=== PATIENT | male | born 1955 | race Caucasian/White ===

== ENCOUNTER 2019-05-04 05:32 | Inpatient (IN) | payer MEDICARE ==
[~2019-05-04 05:32] MED LIST: Buffered Lidocaine 1% SYRIN* 1 ML/SYRINGE INTRADERM ONE
[2019-05-04] MEDS ORDERED: Famotidine TAB* 20 MG PO ONE (06:00)
[2019-05-04] MEDS ORDERED: Acetaminophen TAB* 325 MG PO ONE (06:00)
[2019-05-04] MEDS ORDERED: Gabapentin CAP(*) 300 MG PO ONE (06:00)
[2019-05-04] MEDS ORDERED: Lactated Ringers 1000 ML Bag* 1,000 ML IV SCH ×2 (06:00→23:00)
[2019-05-04] MEDS ORDERED: Dexamethasone IV* 4 MG/ML 1 ML (4 MG) IV SLOW PU ONE (06:00)
[2019-05-04] MEDS ORDERED: celeCOXIB CAP* 200 MG PO ONE (06:00)
[2019-05-04] MEDS ORDERED: Gabapentin CAP(*) 300 MG ONE (06:03)
[2019-05-04] MEDS ORDERED: Dexamethasone IV* 4 MG/ML 1 ML (4 MG) ONE (06:03)
[2019-05-04] MEDS ORDERED: Acetaminophen TAB* 325 MG ONE (06:03)
[2019-05-04] MEDS ORDERED: celeCOXIB CAP* 200 MG ONE (06:04)
[2019-05-04] MEDS ORDERED: ceFAZolin 2 GM PREMIX in ORs 2 GM/50 ML BAG ONE (06:04)
[2019-05-04] MEDS ORDERED: Famotidine IV* 10 MG/ML 2 ML (20 mg) ONE (06:04)
[2019-05-04] MEDS ORDERED: Buffered Lidocaine 1% SYRIN* 1 ML/SYRINGE INTRADERM ONE (06:04)
[2019-05-04] MEDS ORDERED: Famotidine TAB* 20 MG ONE (06:38)
[2019-05-04] MEDS ORDERED: HYDROmorphone INJ1* 1 MG/ML SYRINGE IV PRN ×2 (06:54→20:27)
[2019-05-04] MEDS ORDERED: Naloxone* 0.4 MG/ML 1 ML VIAL IV PRN (06:54)
[2019-05-04] MEDS ORDERED: Acetaminophen IV 1GM/100ML * 1,000 MG/100 ML VIAL IVPB ONE (06:54)
[2019-05-04] MEDS ORDERED: Ketorolac INJ* 30 MG/ML 1 ML VIAL IV PRN (06:54)
[2019-05-04] MEDS ORDERED: fentaNYL* 50 MCG/ML 2 ML VIAL (100 MCG VIAL) IV PRN (06:54)
[2019-05-04] MEDS ORDERED: DiMENhydriNATE IV* 50 MG/ML VIAL IV PUSH PRN (06:54)
[2019-05-04] MEDS ORDERED: Ondansetron INJ* 2 MG/ML VIAL IV PRN (06:54)
[2019-05-04] MEDS ORDERED: oxyCODONE TAB* 5 MG TAB PO PRN (06:54)
[2019-05-04] MEDS ORDERED: Lidocaine 1%* 5 ML VIAL ONE (07:07)
[2019-05-04] MEDS ORDERED: ROPIVACAINE 5 MG/ML 30 ML BTL (0.5%) ONE (07:07)
[2019-05-04] MEDS ORDERED: Midazolam* 1 MG/ML 5 ML VIAL (5 MG) ONE (07:15)
[2019-05-04] MEDS ORDERED: fentaNYL* 50 MCG/ML 2 ML VIAL (100 MCG VIAL) ONE (07:15)
[2019-05-04] MEDS ORDERED: KETAMINE HCL* 50 MG/ML 10 ML VIAL ONE (08:29)
[2019-05-04] MEDS ORDERED: Propofol* 10 MG/ML 20 ML BTL ONE ×2 (10:11→12:48)
[2019-05-04] MEDS ORDERED: Propofol* 1,000 MG/100 ML BTL ONE (10:12)
[2019-05-04] MEDS ORDERED: Lidocaine 2% PF * 5 ML VIAL ONE (10:12)
[2019-05-04] MEDS ORDERED: Bupivacaine 0.25% SDV PF* 10 ML VIAL INJ ONE (10:18)
[2019-05-04] MEDS ORDERED: ceFAZolin VIAL(*) VIAL ONE (12:49)
[2019-05-04] MEDS ORDERED: Magnesium Hydroxide LIQ* 30 ML UDC PO PRN (13:33)
[2019-05-04] MEDS ORDERED: Morphine 4 MG/ML VIAL (1 ml) 4 MG/ML VIAL IV PRN (13:33)
[2019-05-04] MEDS ORDERED: Bisacodyl SUPP* 10 MG SUPP PR PRN (13:33)
[2019-05-04] MEDS ORDERED: Acetaminophen TAB* 325 MG PO PRN (13:33)
[2019-05-04] MEDS ORDERED: diPHENhydraMINE IV* 50 MG/ML 1 ml VIAL (BENADRYL) IV PRN (13:33)
[2019-05-04] MEDS ORDERED: Polyethylene Glycol 3350* 17 GM PACKET PO PRN (13:33)
[2019-05-04] MEDS ORDERED: Cyclobenzaprine TAB* 10 MG PO PRN (13:33)
[2019-05-04] MEDS ORDERED: Rivaroxaban TAB(*) 10 MG PO SCH (14:00)
[2019-05-04] MEDS ORDERED: Nicotine Lozenge* mini 2 MG LOZNG.MINI MT PRN (14:13)
[2019-05-04] MEDS: Nicotine* 2MG (FRUIT FLAVOR) GUM PO PRN ×2 (14:31→17:15)
[2019-05-04] MEDS ORDERED: Ondansetron INJ* 2 MG/ML VIAL ONE (15:47)
[2019-05-04] MEDS: Lactated Ringers 1000 ML Bag* 1,000 ML IV SCH (17:06)
[2019-05-04] MEDS ORDERED: oxyCODONE/Acetamin 5/325 MG* TAB ONE (18:14)
[2019-05-04] MEDS: oxyCODONE/Acetamin 5/325 MG* TAB PO PRN ×2 (18:15→22:49)
[2019-05-04] MEDS: Pantoprazole TAB * 40 MG TAB PO SCH (19:05)
[2019-05-04] MEDS: oxyCODONE TAB* 5 MG TAB PO PRN (20:23)
[2019-05-04] MEDS: ceFAZolin 1 GM ADVAN(*) 1 GM in NS 0.9% 50 ML* 50 ML IVPB SCH (20:26)
[2019-05-04] MEDS ORDERED: HYDROmorphone INJ* 0.5 MG/0.5 ML SYRINGE IV PRN (20:26)
[2019-05-04] MEDS: Docusate CAP* 100 MG PO SCH ×2 (21:40→21:57)
[2019-05-04] MEDS: Magnesium Hydroxide LIQ* 30 ML UDC PO SCH (21:41)
[2019-05-04] MEDS: Ondansetron INJ* 2 MG/ML VIAL IV PRN (22:48)
[2019-05-04] MEDS: Carisoprodol TAB* 350 MG PO SCH (23:29)
[2019-05-04] MEDS: Ketorolac INJ* 30 MG/ML 1 ML VIAL IV PUSH PRN (23:29)
[2019-05-05] MEDS: fentaNYL* 50 MCG/ML 2 ML VIAL (100 MCG VIAL) IV SLOW PU PRN ×2 (00:10→04:55)
--- NOTE | 2019-05-05 00:28 | CONS ---
CC: Dr. Taiwo Tinsley"; Chidi Ortiz MD * CONSULTATION NOTE: DATE OF CONSULT: 05/04/19 TIME OF EVALUATION: 0. PRIMARY CARE PHYSICIAN: Dr. Taiwo Tinsley" REQUESTING PHYSICIAN FOR CONSULTATION: Lizzette Bundy MD REASON FOR CONSULT: Pain management. CHIEF COMPLAINT: Bilateral knee pain. HISTORY OF PRESENT ILLNESS: This is a 63-year-old male with a past medical history of arthritis and chronic low back pain from an accident who was admitted to the hospital for an elective bilateral knee replacement performed by Dr. Ortiz. Postoperatively, the patient has done well, but there have been issues with getting his pain under adequate control. He was switched over to Dilaudid IV because he cannot tolerate IV Morphine due to making his skin crawl. He only got 0.2 mg of Dilaudid when he came out of it and had near syncopal episode followed by nausea and vomiting. The patient states he is still having a lot of significant knee pain and some nausea. No chest pain, no shortness of breath, no lightheadedness. He states he takes about 6 tablets of 5/325 Percocet throughout the day and he takes 2 Soma tablets at bedtime and Meloxicam twice a day. This is for management of his chronic low back pain secondary to a back injury many years ago. Otherwise, remaining review of systems is negative. PAST MEDICAL HISTORY: 1. Chronic back pain secondary to injury. 2. History of hepatitis C. 3. Osteoarthritis. 4. History of peptic ulcer disease. 5. Depression. 6. Bilateral knee degenerative joint disease. PAST SURGICAL HISTORY: 1. Left shoulder repair in 1994. 2. Right knee surgery in 1984. 3. Hernia repair in 1994. MEDICATIONS: 1. Soma 350 mg 2 tabs in the evening at bedtime. 2. Percocet 5/325 per orders it states q.6 hours. The patient states he takes a total of 6 tabs throughout the day. 3. Omeprazole 20 mg daily. 4. Meloxicam 7.5 mg p.o. b.i.d. ALLERGIES: MORPHINE makes his skin crawl. FAMILY HISTORY: Reviewed and noncontributory. SOCIAL HISTORY: The patient lives with his and son. He is retired. He smokes smokeless tobacco. He quit smoking about 13 years ago. At that time he smoked for 10 years for a pack and a half a day. Occasional alcohol use. No illicit drug use. Code status is full code. His healthcare proxy is his . REVIEW OF SYSTEMS: A 14-point review of systems as mentioned in the HPI, otherwise negative. PHYSICAL EXAM: Vitals: Temp is 98.0, pulse rate 81, respiratory rate 18, oxygen saturation 95% on room air, and blood pressure 88/60. General: In no acute distress, resting comfortably, sitting up. HEENT: Head normocephalic. Pupils are equal and reactive, anicteric. Oropharynx; mucous membranes are moist. Neck: Supple. No lymphadenopathy. Cardiac: Regular rate and rhythm. Soft systolic murmur heard throughout. Respiratory: Diminished breath sounds. No wheezing, rhonchi, or rales. Abdomen: Soft, nontender, and nondistended. Extremities: The patient with bilateral knee immobilizers and ice packs. He has good skin cap refill on his toes in movement. Neurologic: Alert and oriented x3. No gross focal neurologic deficits. ASSESSMENT: This is a 63-year-old male who underwent bilateral knee replacement with Dr. Ortiz today. He has a history of chronic low back pain on narcotics and having issues with pain control. 1. Bilateral knee replacement. Management per surgery service. 2. Acute on chronic pain. The patient intolerant of morphine and appears to have had an adverse reaction to getting Dilaudid this evening as well. Discussed continuing his Percocet. Would try IV fentanyl. He states he has had a fentanyl patch in the past and tolerated it without any issues. Would also hold his meloxicam and start him on Toradol as needed. We will also put him back on his evening soma dose medication. He is already on a bowel regimen. CHRONIC MEDICAL PROBLEMS: 1. Peptic ulcer disease. Continue him on pantoprazole. 2. DVT prophylaxis, per surgery service. 3. FEN. The patient is on a regular diet. 4. Code status. Full code. Thank you for this consultation. We will follow along with you. PATIENT TIME: Greater than 30 minutes was spent doing the consultation, more than half the time spent in direct patient contact. [id number]/[facility] #: [id number] CLAUDIA
[2019-05-05] MEDS: Lactated Ringers 1000 ML Bag* 1,000 ML IV SCH (00:56)
[2019-05-05] MEDS: oxyCODONE TAB* 5 MG TAB PO PRN ×6 (00:56→23:30)
[2019-05-05] MEDS: oxyCODONE/Acetamin 5/325 MG* TAB PO PRN ×5 (02:58→21:20)
[2019-05-05] MEDS: ceFAZolin 1 GM ADVAN(*) 1 GM in NS 0.9% 50 ML* 50 ML IVPB SCH ×3 (05:03→20:47)
[2019-05-05 05:11] LABS: Hematocrit 34 % (42-52); Hemoglobin 11.5 g/dL (14.0-18.0); Mean Platelet Volume 7.4 fL (7.4-10.4); Platelet Count 231 10^3/uL (150-450)
[2019-05-05 05:25] LABS: BUN/Creatinine Ratio 18.3 (8-20); Calcium 8.6 mg/dL (8.6-10.3); EGFR African American 82.9 (>60); EGFR Non-African American 68.5 (>60); Potassium 3.8 mmol/L (3.5-5.0)
--- NOTE | 2019-05-05 06:50 | OP ---
DATE OF OPERATION: 05/04/19 - ROOM #347 DATE OF : 57 SURGEON: Chidi Ortiz MD ASSISTANTS: 1. MUNA Mcmullen. 2. MUNA Chavez A physician outreach assistant was required for the length of the procedure for assistance with the patient positioning, retraction, instrumentation, and closure. ANESTHESIOLOGIST: Dr. Zaki Gillette. ANESTHESIA: Spinal and epidural anesthesia. PRE-OP DIAGNOSES: 1. Bilateral knee osteoarthritis. 2. Rheumatoid arthritis. POST-OP DIAGNOSES: 1. Bilateral knee osteoarthritis. 2. Rheumatoid arthritis. OPERATIVE PROCEDURE: Bilateral total knee arthroplasty, right and left. ANTIBIOTICS: Ancef 2 g IV given just prior to skin incision and then prior to 4 hours afterwards during the case. TOURNIQUET TIME: 125 minutes at 300 mmHg, right thigh and 126 minutes at 300 mmHg, left thigh. SKIN TO SKIN TIME: 258 minutes. IV FLUIDS: 2500 crystalloid. URINE OUTPUT: 1000 cc in the Morelos catheter. ESTIMATED BLOOD LOSS: Less than 200 cc, although I note the anesthesiologist recorded 300 cc. Difficult to know exact number. SPECIMEN: Bone cuts from bilateral knees. IMPLANTS: Right knee implants or DePuy Spencer and Spencer Attune Cruciate Retaining System. Femur size 8 cemented, tibia size 6 cemented, patella medialized dome 38 mm cemented, polyethylene insert 5 mm. I used Palacos cement. Left knee implants with the same DePuy Spencer and Spencer Attune Cruciate Retaining System. Size 8 cemented femur, size 6 cemented tibia, patella medialized dome size 38 mm and polyethylene insert size 6 mm. Palacos cement used. COMPLICATIONS: None. INDICATIONS FOR PROCEDURE: The patient is a 63-year-old man, retired and disabled with rheumatoid arthritis, who has a long history of bilateral pain and osteoarthritis of bilateral knees. He had been treated by other physicians with multiple cortisone injections in bilateral knees. He had also received multiple genicular nerve blocks performed by Dr. Talavera at [facility]. The patient had not responded sufficiently over the years to nonoperative management involving joint replacement. The patient was very interested in simultaneous bilateral total knee arthroplasty versus staged procedures. I spoke to he and his at length about the rare, but real increase in complications seen with simultaneous bilateral total knee arthroplasty such as cardiac events, pulmonary emboli, or . The patient and his were comfortable of the risks and wanted to proceed forward with the simultaneous bilateral procedures. I had also spoke of course about the typical risks and potential complications of procedure with the patient and his . DESCRIPTION OF PROCEDURE: In preoperative holding, the patient signed the written consent. Operative extremities were marked in preoperative holding. The patient was taken back to the operating room and placed on operating room table. The patient underwent a spinal epidural by anesthesia. We laid the patient supine. I applied lateral post to each side of the table. Applied tourniquets to the proximal thighs bilaterally. Prepped and draped bilateral lower extremities first with a chlorhexidine scrub and then a ChloraPrep. We next prepped and draped bilateral lower extremities. We next put into place bilateral Pley knee positioner systems. We performed a formal time-out, surgical. I decided to start with the right knee. Esmarch was applied to the right lower extremity and tourniquet was elevated. I made a standard midline anterior incision in the skin. Changed knife. Dissected down to the extensor mechanism. Marked and then made a medial parapatellar arthrotomy. Continued this through the anterior horn of the medial meniscus. Fully extended knee. Debrided capsule of the anterior aspect of the medial and lateral tibial plateau. Everted the patella. Removed fat from the deeper aspect of the patellar tendon. Patellar everted nicely. Flexed the knee up to 90 degrees. Removed ACL. I removed osteophytes in the intercondylar notch. Identified the PCL origin. Drilled the femoral canal. Placed distal femoral cutting guide. Cut at 5 degrees of valgus and 9 mm. Removed instrument. I sized the distal femur to a size 8. I placed 4-in-1 cutting guide. Made all appropriate cuts. I removed guide. I removed all pieces of bone and removed some additional using rongeur. I used external tibial alignment cutting guide. The medial side was the low side and is slightly varus knee that I measured at 0 or 1 degrees in a coronal plane. I removed 4 mm from the low side, medial side. I placed retractors. I removed my bone cut. I removed it all in 1 piece. The low side was just a millimeter or two thick. I was very happy with that. I removed minimum of bone. At the high side, I measured to get out 13 mm that was lateral. I placed laminar spreaders and removed menisci with Bovie electrocautery. I placed dog bone spacers. I had symmetric extension and flexion spaces and adequate bone had been resected. I rasped the anterior chamfer cut of the femur. I placed a femoral trial and drilled through it. I next turned my attention to the tibia. I sized the tibia to 6. I placed the guide, drilled through it and then punched the tibia. I measured deep patellar depth. It was striking the deep about 28 mm. I removed patellar bone stock using free-hand technique to about a depth of 13 to 14 mm. I sized the patella and drilled through a guide. A 38 mm button fit nicely. I next trialed the knee. Trialed well. A good soft tissue balancing. Good balancing of flexion version extension spaces. I noted with my trialing that the patella was off from the groove of implant a bit. Anticipating may be performing somewhat of lateral release. Irrigation. I plugged up femoral canal with some bone. Irrigation. Mixed Palacos cement. Cemented in tibia femur, patellar implants, and placed a 6 mm trial insert. I let cement fully harden. Then, I trialed several sizes and picked 5 mm insert. Range of motion was incredible. It should be noted that at the start of the case when I had trial inserts in place, I did the Dr. Ibanez lift up chest as well as fully flexing the knee and that showed excellent flexion space, not too tight or loose. With final implants and we irrigated. I thought the patella was still tracking slightly lateral, so I performed a lateral retinacular release, this was done with Bovie electrocautery using the deep layer of capsule fully intact. This led the patella to track little bit more nicely. We closed the parapatellar arthrotomy with figure-eight stitches using Ethibond 0 and Vicryl 0 suture. Irrigation. Closure of the subcutaneous tissue with very simple stitches using Vicryl 2.0 suture. Ayleen to the skin. We placed a sterile warp around the right knee and we dropped the tourniquet. Next, we turned our attention to the contralateral left knee. Midline anterior longitudinal skin incision. Changed knives and dissected down to the extensor mechanism. Medial parapatellar arthrotomy. Extended knee to at least capsule of the anterior tibia. I removed fat, infrapatellar fat pad. Everted patella. I flexed the knee up to 90 degrees. Removed ACL. I removed osteophytes from intercondylar notch. I reamed the femur. I placed the distal femoral cutting guide. I removed 5 degrees of valgus and 9 mm. I sized the tibia to an 8. I placed 4-in-1 cutting guide. I removed bone cuts. I removed instruments. I applied external cutting guide to the tibia. I decided I was going to take slightly more out the medial side, so I cut 5 mm rather than 4 mm off of the low medial side. The bone cut after the bone was removed showed it to be excellent. Medial side was only 1 or 2 mm thick whereas lateral side was about 13 mm thick. I placed laminar spreaders. I removed menisci with Bovie electrocautery. I removed some loose bodies and osteophytes posteriorly. I rasped the anterior chamfer cut and drilled the femur. I sized the tibia to size 6. I placed the guide, drilled, and then punched the tibia. The patella on the left side was not as thick as the right side. I measured it to be about 24 mm in depth. I used free-hand technique to make it only 13 mm in depth. I sized it to a 38 mm and drilled it. There is some sclerotic bone present. Irrigation. Mixed cement. Plugging of femoral canal. I cemented into place tibia, femoral, and patellar component. I let the cement to harden with a size [address]. When the cement hardened, I chose a final insert of 6 mm. Excellent soft tissue balancing of the knee. I performed a tiny lateral retinacular release to improve patellar tracking. This is limited. Closed parapatellar arthrotomy with figure-eight stitches using Ethibond 0 and Vicryl 0 suture, figure-eight stitches and closed subcutaneous tissue with buried simple stitches using Vicryl 2.0 suture. Closure of the skin with ayleen. Both knees were dressed with Xeroform, 4x4s, ABDs, and sterile Webril. This was followed by an Tevin bandage from foot to proximal thigh. The patient was awakened from sedation and transferred to the PACU. The patient was to receive cooling units on both knees. DISPOSITION: The patient was admitted postoperatively for pain control IV and oral, physical therapy, medical management. As the patient was taking narcotics preoperatively, chronically, he may have a high pain medication requirement postoperatively. Because he had bilateral total knee arthroplasty simultaneously, it has been expected since preoperative that he will likely need rehabilitation placement for some period of time. The patient will see me in clinic in about 2- 1/2 weeks postoperatively for wound check and staple removal. [id number]/[facility] #: [id number] MTDD
[2019-05-05] MEDS ORDERED: Tranexamic Acid 1,000 MG in NS 0.9% 50 ML IV ONE (07:00)
[2019-05-05] MEDS: Magnesium Hydroxide LIQ* 30 ML UDC PO SCH ×2 (08:08→21:21)
[2019-05-05] MEDS: Ketorolac INJ* 30 MG/ML 1 ML VIAL IV PUSH PRN ×3 (08:09→21:21)
[2019-05-05] MEDS: Vitamin THERAPEUTIC TAB PO SCH (08:09)
[2019-05-05] MEDS: Docusate CAP* 100 MG PO SCH ×2 (08:09→21:20)
[2019-05-05] MEDS ORDERED: oxyCODONE TAB* 5 MG TAB PO PRN (09:54)
[2019-05-05] MEDS ORDERED: oxyCODONE/Acetamin 5/325 MG* TAB PO PRN (09:54)
[2019-05-05] MEDS ORDERED: HYDROmorphone INJ* 0.5 MG/0.5 ML SYRINGE IV SLOW PU PRN (09:54)
--- NOTE | 2019-05-05 10:42 | PN ---
Progress Note - Progress Note Date of Service: 05/05/19 SOAP: Subjective: []Patient seen and examined in chair. He is feeling well, knee pain is present but tolerable. Denies any chest pain, shortness of breath, dizziness, nausea. Objective: []General: Appears well, NAD, sitting up in chair BL LE: Dressings CDI, thighs soft, DF/PF intact, DP2+, sensation intact to light touch distally. Calves supple and nontender Assessment: []POD 1 SP BL total knee replacements Plan: []WBAT PT/OT Xarelto 10 mg po QD Encouraged continued IS use Vital Signs Temp 99 F 05/05/19 07:23 Pulse 87 05/05/19 07:23 Resp 18 05/05/19 10:25 BP 102/61 05/05/19 07:23 Pulse Ox 94 05/05/19 08:00 Intake & Output 05/04/19 05/05/19 05/05/19 18:59 06:59 18:59 Intake Total 2600 4469 600 Output Total 3150 1600 450 Balance -550 2869 150 Intake: IV Fluids 2600 1661 LR 1661 NS 50ML, Cefazolin 2G 100 lr 2500 IVPB 58 ABX - CEFAZOLIN 58 Oral 2750 600 Output: Urine 550 450 Morelos 2850 1050 Estimated Blood Loss 300 Other: # Bowel Movements 0 Laboratory Last Values Hgb 11.5 g/dL (14.0-18.0) L 05/05/19 04:50 Hct 34 % (42-52) L 05/05/19 04:50 Plt Count 231 10^3/uL (150-450) 05/05/19 04:50 MPV 7.4 fL (7.4-10.4) 05/05/19 04:50 Sodium 139 mmol/L (135-145) 05/05/19 04:50 Potassium 3.8 mmol/L (3.5-5.0) 05/05/19 04:50 Chloride 102 mmol/L (101-111) 05/05/19 04:50 Carbon Dioxide 32 mmol/L (22-32) 05/05/19 04:50 Anion Gap 5 mmol/L (2-11) 05/05/19 04:50 BUN 20 mg/dL (6-24) 05/05/19 04:50 Creatinine 1.09 mg/dL (0.67-1.17) 05/05/19 04:50 Est GFR ( Amer) 82.9 (>60) 05/05/19 04:50 Est GFR (Non-Af Amer) 68.5 (>60) 05/05/19 04:50 BUN/Creatinine Ratio 18.3 (8-20) 05/05/19 04:50 Glucose 117 mg/dL (70-100) H 05/05/19 04:50 Calcium 8.6 mg/dL (8.6-10.3) 05/05/19 04:50
[2019-05-05] MEDS: Rivaroxaban TAB(*) 10 MG PO SCH (12:00)
[2019-05-05] MEDS: Pantoprazole TAB * 40 MG TAB PO SCH (17:17)
--- NOTE | 2019-05-05 17:41 | PN ---
Subjective Date of Service: 05/05/19 Objective Active Medications: Acetaminophen (Tylenol Tab*) 650 mg PO Q8H PRN Bisacodyl (Dulcolax Supp*) 10 mg [place] DAILY PRN Carisoprodol (Soma Tab*) 350 mg PO BEDTIME RENAN Diphenhydramine HCl (Benadryl Iv*) 25 mg IV Q6H PRN Docusate Sodium (Colace Cap*) 100 mg PO BID [facility] Fentanyl Citrate (Fentanyl*) 25 mcg IV SLOW PU Q4H PRN Hydromorphone HCl (Dilaudid Inj*) 1 mg IV SLOW PU Q4H PRN Cefazolin Sodium 1 gm/ Sodium (Chloride) 50 mls @ 200 mls/hr IVPB Q8H [facility] Lactated Ringer's (Lactated Ringers 1000 Ml Bag*) 1,000 mls @ 100 mls/hr IV PER RATE [facility] Ketorolac Tromethamine (Toradol Inj*) 30 mg IV PUSH Q6H PRN Lactulose (Lactulose*) 30 ml PO Q6H PRN Magnesium Hydroxide (Milk Of Magnesia Liq*) 30 ml PO BID RENAN Magnesium Hydroxide (Milk Of Magnesia Liq*) 30 ml PO Q6H PRN Multivitamins (Theragran Tab*) 1 tab PO DAILY [facility] Nicotine Polacrilex (Nicotine Gum*) 2 mg PO Q2H PRN Nicotine Polacrilex (Nicotine Lozenge Mini) 2 mg MT Q2H PRN Ondansetron HCl (Zofran Inj*) 4 mg IV Q6H PRN Oxycodone HCl (Roxycodone Tab*) 10 mg PO Q4H PRN Oxycodone HCl (Roxycodone Tab*) 5 mg PO Q4H PRN Oxycodone/Acetaminophen (Percocet 5/325 Tab*) 2 tab PO Q4H PRN Oxycodone/Acetaminophen (Percocet 5/325 Tab*) 1 tab PO Q4H PRN Pantoprazole Sodium (Protonix Tab*) 40 mg PO QPM [facility] Polyethylene Glycol/Electrolytes (Miralax*) 17 gm PO DAILY PRN Rivaroxaban (Xarelto(*)) 10 mg PO Q24H [facility] Vital Signs: Temp Pulse Resp BP Pulse Ox 99.0 F 76 18 95/52 96 05/05/19 15:27 05/05/19 15:27 05/05/19 17:18 05/05/19 15:27 05/05/19 16:00 Oxygen Devices in Use Now: None Result Diagrams: 05/05/19 04:50 05/05/19 04:50 Assess/Plan/Problems-Billing Assessment: Mr. Brewer is a
[2019-05-05] MEDS: Carisoprodol TAB* 350 MG PO SCH (21:20)
[2019-05-06] MEDS: oxyCODONE/Acetamin 5/325 MG* TAB PO PRN ×3 (01:28→10:50)
[2019-05-06] MEDS: oxyCODONE TAB* 5 MG TAB PO PRN ×2 (03:56→08:20)
[2019-05-06] MEDS: ceFAZolin 1 GM ADVAN(*) 1 GM in NS 0.9% 50 ML* 50 ML IVPB SCH ×2 (03:57→10:51)
[2019-05-06 06:05] LABS: Hematocrit 30 % (42-52); Hemoglobin 10.2 g/dL (14.0-18.0); Mean Platelet Volume 7.3 fL (7.4-10.4); Platelet Count 208 10^3/uL (150-450)
[2019-05-06 07:50] VITALS: BP 98/47
[2019-05-06] MEDS: Vitamin THERAPEUTIC TAB PO SCH (08:23)
[2019-05-06] MEDS: Magnesium Hydroxide LIQ* 30 ML UDC PO SCH (08:23)
[2019-05-06] MEDS: Docusate CAP* 100 MG PO SCH (08:23)
[2019-05-06] MEDS: Ondansetron INJ* 2 MG/ML VIAL IV PRN (08:23)
[2019-05-06] MEDS ORDERED: Lorazepam PYXIS KEY ONE (08:38)
--- NOTE | 2019-05-06 10:32 | DS ---
Orthopedic Discharge Summary - Discharge Summary Date of Admission:05/04/19 Date of Discharge: 05/06/19 Date of Surgery: 05/04/19 Attending Orthopedic Provider: Dr. Ortiz Pre-operative Diagnosis: Degenerative arthritis bilateral knees Operative Procedure: Bilateral total knee arthroplasty Disposition of Patient: PMRU Condition of Patient: Stable History: BILL BURRELL is a 63 year old M with years of increasingly severe bilateral knee pain. Patient has failed conservative management and has elected to undergo a bilateral total knee replacement Hospital Course: BILL was admitted to [facility] on 05/04/19. Patient underwent a bilateral total knee replacement without complication followed by a brief recovery in PACU and transfer to the Short Stay Surgical Unit in stable condition. Our hospitalist service, physical therapy and occupational therapy also participated in this patients care. Post-op day 1: patient was alert and in no acute distress. Dressing was clean, dry and intact. Operative extremity dorsiflexion and plantarflexion intact, sensation intact to light touch distally, DP2+. Post-op day two: dressing was changed, incisions were clean, dry and intact. He was having some vomiting, Reglan and Zofran ordered. He also complains of some mild left calf pain today- venous doppler study in progress. PMRU states they will accept patient and will manage his nausea and will await venous doppler results. He will continue with Xarelto 10 mg QD at this point. Patient was deemed to be medically and orthopedically stable for discharge per PMRU criteria. Home Medications Medication Instructions Recorded Confirmed Type Carisoprodol TAB* [Soma TAB*] 1 tab PO BID 04/21/19 05/04/19 History Omeprazole 20 mg PO QPM 04/21/19 05/04/19 History Ascorbic Acid TAB* [Vitamin C 1,000 mg PO DAILY 05/04/19 05/04/19 History TAB*] Multivit-Min/Folic/Vit K/Lycop 1 tab PO DAILY 05/04/19 05/05/19 History [Men's Multivitamin Tablet] Acetaminophen TAB* [Tylenol TAB*] 650 mg PO Q8H PRN tab 05/06/19 Rx Bisacodyl SUPP* [Dulcolax Supp*] 10 mg HI DAILY PRN supp 05/06/19 Rx Carisoprodol TAB* [Soma TAB*] 350 mg PO BEDTIME tab 05/06/19 Rx Docusate CAP* [Colace Cap*] 100 mg PO BID cap 05/06/19 Rx Lactulose* 30 ml PO Q6H PRN udc 05/06/19 Rx Magnesium Hydroxide LIQ* [Milk of 30 ml PO BID udc 05/06/19 Rx Magnesia LIQ*] Magnesium Hydroxide LIQ* [Milk of 30 ml PO Q6H PRN udc 05/06/19 Rx Magnesia LIQ*] Nicotine GUM* 2MG FRUIT FLAVOR 2 mg PO Q2H PRN gum 05/06/19 Rx [Nicotine GUM*] Ondansetron INJ* [Zofran 2 MG/ML 4 mg IV Q6H PRN vial 05/06/19 Rx Inj*] Polyethylene Glycol 3350* 17 gm PO DAILY PRN packet 05/06/19 Rx [Miralax*] Rivaroxaban TAB(*) [Xarelto 10 mg 10 mg PO Q24H tab 05/06/19 Rx (*)] Vitamin THERAPEUTIC TAB* 1 tab PO DAILY tab 05/06/19 Rx [Theragran TAB*] oxyCODONE TAB* [Roxycodone TAB 5 5 mg PO Q4H PRN tab 05/06/19 Rx mg*] oxyCODONE TAB* [Roxycodone TAB 5 10 mg PO Q4H PRN tab 05/06/19 Rx mg*] oxyCODONE/Acetamin 5/325 MG* 1 tab PO Q4H PRN tab 05/06/19 Rx [Percocet 5/325 TAB*] oxyCODONE/Acetamin 5/325 MG* 2 tab PO Q4H PRN tab 05/06/19 Rx [Percocet 5/325 TAB*] Discharge to PMRU May shower on 05/07 WBAT BLE May need to change narcotics in vomiting continues Venous doppler LLE pending Follow up as scheduled in 10-[address] Ortiz
[2019-05-06] MEDS: Rivaroxaban TAB(*) 10 MG PO SCH (10:51)
[2019-05-06] MEDS ORDERED: Metoclopramide IV* 5 MG/ML 2 ML VIAL ONE (11:53)
[2019-05-06] MEDS ORDERED: Scopolamine 1.5 mg* PATCH ONE (11:53)
== END 2019-05-06 12:15 | DRG 462 ==
LOC: AA 05:32 → SSU 17:02 → AA 17:02 → SSU 17:20
PROVIDERS: ADMIT Orthopaedic Surgery; ATTEND Orthopaedic Surgery
PROC: 0SRD0J9 Replacement of Left Knee Joint with Synthetic Substitute, Cemented, Open Approach (ICD-10-PCS; principal; 2019-05-05)
PROC: 0SRC0J9 Replacement of Right Knee Joint with Synthetic Substitute, Cemented, Open Approach (ICD-10-PCS; 2019-05-05)
DX: M17.0 Bilateral primary osteoarthritis of knee (principal); F32.9 Major depressive disorder, single episode, unspecified; M06.9 Rheumatoid arthritis, unspecified; G89.29 Other chronic pain; M54.9 Dorsalgia, unspecified; M25.762 Osteophyte, left knee; M25.761 Osteophyte, right knee; K27.9 Peptic ulcer, site unspecified, unspecified as acute or chronic, without hemorrhage or perforation; F41.9 Anxiety disorder, unspecified; R11.2 Nausea with vomiting, unspecified; Z79.01 Long term (current) use of anticoagulants; Z88.5 Allergy status to narcotic agent; Z86.19 Personal history of other infectious and parasitic diseases; Z87.891 Personal history of nicotine dependence
CPT/HCPCS: 36415; 80048; 84132; 85014; 85018; 85049; A9270-GY; G8978-GP-CL; G8979-GP-CI; G8987-GO-CJ; G8988-GO-CH; J0690; J1100; J1170; J1885; J2250; J2405; J2704; J2765; J2795; J3010; J3490

== ENCOUNTER 2019-05-06 08:19 | Inpatient (IN) | payer MEDICARE ==
[2019-05-06] MEDS ORDERED: Bisacodyl SUPP* 10 MG SUPP PR PRN (10:28)
[2019-05-06] MEDS ORDERED: Al Hydrox/Mg Hydrox/Simet LIQ* 30 ML UDC PO PRN (10:28)
[2019-05-06] MEDS ORDERED: Acetaminophen TAB* 325 MG PO PRN (10:28)
[2019-05-06] MEDS ORDERED: Nicotine* 2MG (FRUIT FLAVOR) GUM PO PRN (10:39)
[2019-05-06] MEDS ORDERED: Nicotine Lozenge* mini 2 MG LOZNG.MINI MT PRN (10:40)
[2019-05-06] MEDS ORDERED: oxyCODONE/Acetamin 5/325 MG* TAB PO PRN (10:41)
[2019-05-06] MEDS ORDERED: oxyCODONE TAB* 5 MG TAB PO PRN (10:41)
[2019-05-06] MEDS ORDERED: Ondansetron ODT TAB* 4 MG SL PRN (10:42)
[2019-05-06] MEDS ORDERED: Metoclopramide IV* 5 MG/ML 2 ML VIAL IV PRN (11:35)
[2019-05-06] MEDS ORDERED: Rivaroxaban TAB(*) 10 MG PO SCH (12:00)
[2019-05-06] MEDS ORDERED: Ondansetron INJ* 2 MG/ML VIAL IV PRN (12:14)
[2019-05-06] MEDS ORDERED: oxyCODONE TAB* 5 MG TAB ONE (13:04)
[2019-05-06] MEDS: oxyCODONE TAB* 5 MG TAB PO PRN ×3 (13:07→21:53)
--- NOTE | 2019-05-06 14:33 | HP ---
CC: Dr. Tinsley; Dr. Ortiz; Dr. Talavera REHABILITATION ADMISSION: DATE OF ADMISSION: 05/06/19 PRIMARY CARE PROVIDER: Dr. Tinsley. ORTHOPEDIC SURGEON: Dr. Ortiz. PAIN SPECIALIST: Dr. Talavera. REASON FOR ADMISSION: Bilateral total knee replacements. HISTORY OF PRESENT ILLNESS: This is a 63-year-old man with rheumatoid arthritis affecting his hands and neck and osteoarthritis affecting his knees, who has been dealing with increasing knee pain over the past 3 years. On , he was admitted by Dr. Ortiz for elective bilateral total knee replacement. Postoperatively, he received some IV Dilaudid, which resulted in nausea, vomiting, and a near syncopal event. He was switched to IV fentanyl and IV Toradol on an as needed basis. His last dose of Toradol was last night. He has done fairly well with alternating doses of Percocet and Roxycodone except for he has been having nausea and vomiting. He feels that the vomiting is secondary to pain as last time this occurred, it was as he transferred to and from the commode to urinate. A scopolamine patch was added. He has Zofran on an as needed basis. Nursing upstairs had offered to him Reglan, but his reported that one of his sons had an adverse reaction to Reglan and they prefer that not be used. He had some swelling in his left calf noted this morning and venous Doppler revealed no DVT. Prior to admission, he was independent with mobility and ADLs and not using any assistive devices. With occupational therapy, he has required minimal assistance for lower body dressing , minimal assistance x2 for bathing and for toilet transfers. With physical therapy, he has required supervision for bed mobility. He has required a moderate amount of assistance for transfer with a rolling walker and was able to ambulate 4 feet with contact guard assistance. PAST MEDICAL HISTORY: 1. 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 2. History of hepatitis C with most recent counts undetectable. 3. Osteoarthritis affecting both knees, status post bilateral total knee replacements. See history of present illness. 4. Rheumatoid arthritis. Followed by Dr. Engle. 5. Peptic ulcer disease. 6. Depression. 7. History of left shoulder surgery for rotator cuff repair in 1994. 8. History of right knee arthroscopy. 9. Status post hernia repair in 1994. MEDICATIONS: 1. Soma 350 mg q.h.s., may repeat x1. 2. Protonix 40 mg daily, which is a substitute for omeprazole 20 mg daily. 3. Tylenol p.r.n. 4. Colace 100 mg b.i.d. 5. Milk of magnesia p.r.n. 6. Multivitamin daily. 7. Nicotine gum and lozenge 2 mg q.2 hours p.r.n. craving. 8. Zofran 0.4 mg IV or sublingual q.6 hours p.r.n. nausea and vomiting. 9. Roxycodone 5 to 10 mg q.4 hours p.r.n. pain. 10. Percocet 1 to 2 tablets q.4 hours p.r.n. pain. 11. MiraLAX p.r.n. 12. Xarelto 10 mg daily for DVT prophylaxis. 13. Scopolamine patch recently added. ALLERGIES: IV MORPHINE makes his skin crawl. FAMILY HISTORY: Father, heart disease and arthritis. Mother had a valve replaced and arthritis. Son, diabetes mellitus. SOCIAL HISTORY: He lives with his and 12-year-old son in [place]. If he cannot make decisions for himself, his will make decisions for him. She works in [employer] for [employer] and has a flexible schedule. 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 He quit smoking 13 years ago, but still does chew tobacco and has some nicotine dependence. He occasionally drinks alcohol. Their home has 1 step to enter from the front, but there are no rails. At the back door, there are 7 steps to enter with 2 rails and then a couple of landings before being on the first floor. There is a small bathroom that may not fit a walker on the first floor. It is 14 steps to the second level of the home. REVIEW OF SYSTEMS: See history of present illness and past medical history. The remainder of 13-system review was completed. He has not been eating because of the nausea and vomiting. No significant findings. PHYSICAL EXAMINATION GENERAL: Well developed, well nourished, appearing stated age. MENTAL STATUS: No acute distress. Alert and appropriate. VITAL SIGNS: Temperature 99.3, heart rate 81, respirations 18, oxygen saturation 95% on room air, blood pressure 98/47. HEENT: Normocephalic and atraumatic. Oropharynx is clear. Moist mucous membranes. LUNGS: Clear to auscultation bilaterally. HEART: Regular rate and rhythm. ABDOMEN: Active bowel sounds, soft, nontender, and nondistended. EXTREMITIES: No clubbing, cyanosis, or edema. Both of his knees are wrapped. NEUROLOGIC EXAM: Cranial nerves II through XII are intact. He does appear to have a slight droop at the bottom of his left lip. His , who is in the room , says that that is not unusual especially when he is tired or in pain. He has 5/5 strength in bilateral upper and lower extremities with limited testing of bilateral hips and knees secondary to pain. Sensation is intact in all 4 extremities. MUSCULOSKELETAL EXAM: Shows functional range of motion of all of his major joints, with once again limited testing of his hips and knees secondary to his surgery. LABORATORY DATA: Today, his hemoglobin is 10.2 and hematocrit is 30. Yesterday, hemoglobin was 11.5 and hematocrit was 34. Sodium 139, potassium 3.8 , BUN 20, creatinine 1.09. IMPRESSION: A 63-year-old man status post bilateral total knee replacements. He will be admitted to [facility] so that he can return to independent living. PLAN/RECOMMENDATIONS: 1. Bilateral total knee replacements. He has completed 6 doses of cefazolin. He needs followup with Dr. Ortiz as routine postoperative course. Pain medications as currently ordered. 2. DVT prophylaxis. I discussed with Dr. Ortiz his vomiting and there is concern he may have vomited his xarelto 20 minutes after he took it, although this was not confirmed. He will be placed on lovenox in the interim and then Dr. Ortiz prefers Eliquis 2.5mg bid when he tolerates po better. 3. Nausea and vomiting. Continue Zofran as needed and he now has a scopolamine patch. If this was not helpful, consider Phenergan and Compazine. Avoid Reglan due to the patient's preference. 4. Nicotine dependence. He will be offered gum or lozenges as needed. 5. Peptic ulcer disease. Continue with proton pump inhibitor. 6. History of rheumatoid arthritis. He is currently off of his scheduled meloxicam. Prednisone has been used in the past for flare-up as needed. 7. Impaired mobility. He will be seen by Physical Therapy for bed mobility, transfer, gait and stair training using the least restrictive assistive device. 8. Impaired self-care. He will be seen by Occupational Therapy for ADL and IADL training and equipment evaluation. 9. Advance directives. His is his healthcare proxy if he cannot make decisions for himself. He is a full code. ESTIMATED LENGTH OF STAY: 2 to 3 weeks. [id number]/CPS #: [id number] MTDD
[2019-05-06] MEDS: Scopolamine 1.5 mg* PATCH TRANSDERM SCH (15:38)
[2019-05-06] MEDS: oxyCODONE/Acetamin 5/325 MG* TAB PO PRN ×2 (15:44→20:27)
[2019-05-06] MEDS: Pantoprazole TAB * 40 MG TAB PO SCH (17:50)
[2019-05-06] MEDS: D5NS 0.9% 1000 ML BAG* 1,000 ML IV SCH (18:00)
[2019-05-06] MEDS: Carisoprodol TAB* 350 MG PO SCH (20:28)
[2019-05-06] MEDS: Docusate CAP* 100 MG PO SCH (20:28)
[2019-05-06] MEDS: Senna TAB PO PRN (20:28)
[2019-05-07] MEDS: oxyCODONE/Acetamin 5/325 MG* TAB PO PRN ×4 (00:45→20:20)
[2019-05-07] MEDS: oxyCODONE TAB* 5 MG TAB PO PRN ×5 (02:02→21:52)
[2019-05-07 05:04] LABS: ABS Eosinophils 0.1 10^3/ul (0-0.6); ABS Monocytes 0.8 10^3/ul (0-0.8); ABS Neutrophils 7.5 10^3/ul (1.5-7.7); Eosinophil % 1.3 %; Hematocrit 28 % (42-52); Hemoglobin 9.4 g/dL (14.0-18.0); Lymphocyte % 10.9 %; Mean Corpuscular HGB Conc 34 g/dL (31-36); Mean Corpuscular Hemoglobin 32 pg (27-31); Mean Corpuscular Volume 96 fL (80-94); Mean Platelet Volume 7.3 fL (7.4-10.4); Platelet Count 208 10^3/uL (150-450); Red Blood Count 2.89 10^6 /uL (4.18-5.48); Red Cell Distribution Width 12 % (10-15); White Blood Count 9.5 10^3/uL (3.5-10.8)
[2019-05-07 05:24] LABS: Albumin 3.2 g/dL (3.2-5.2); Albumin/Globulin Ratio 1.4 (1-3); BUN/Creatinine Ratio 11.9 (8-20); Calcium 8.6 mg/dL (8.6-10.3); EGFR Non-African American 92.6 (>60); Globulin 2.3 g/dL (2-4); Potassium 4.2 mmol/L (3.5-5.0); Total Bilirubin 0.5 mg/dL (0.2-1.0); Total Protein 5.5 g/dL (6.4-8.9)
[2019-05-07] MEDS: Polyethylene Glycol 3350* 17 GM PACKET PO PRN (09:06)
[2019-05-07] MEDS: Docusate CAP* 100 MG PO SCH ×2 (09:08→21:47)
[2019-05-07] MEDS: Vitamin THERAPEUTIC TAB PO SCH (09:08)
[2019-05-07] MEDS: Enoxaparin(*) 30 MG/0.3 ML SYR SUBCUT SCH (09:09)
[2019-05-07] MEDS ORDERED: Methocarbamol TAB* 500 MG PO PRN (10:12)
--- NOTE | 2019-05-07 10:21 | PN ---
Progress Note Date of Service: 05/07/19 Note: BILL BURRELL was visited. Nursing and therapy notes read and reviewed. No chest pain, shortness of breath or abdominal pain. He has not vomited since admission but still feels nauseated. He did eat some dinner last night and is trying to eat some breakfast. He has some right sided back pain, which he reports once in the past prior to admission progressed to more severe spasms including his abdomen. He has not new leg numbness, tingling or weakness. Just pain in the knees. He has not had a bowel movement but is passing flatus. Current Medications: Active Medications Generic Name Dose Route Start Last Admin Trade Name Freq PRN Reason Stop Dose Admin Acetaminophen 650 mg 05/06/19 10:28 Tylenol Tab* PO Q6H PRN FEVER > 101 Al Hydrox/Mg Hydrox/Simethicone 30 ml 05/06/19 10:28 Maalox Plus* PO Q6H PRN INDIGESTION Bisacodyl 10 mg 05/06/19 10:28 Dulcolax Supp* [place] DAILY PRN CONSTIPATION Carisoprodol 350 mg 05/06/19 21:00 05/06/19 20:28 Soma Tab* PO 350 mg BEDTIME RENAN Administration Docusate Sodium 100 mg 05/06/19 21:00 05/07/19 09:08 Colace Cap* PO 100 mg BID RENAN Administration Enoxaparin Sodium 30 mg 05/07/19 09:00 05/07/19 09:09 Lovenox(*) SUBCUT 30 mg Q24H RENAN Administration Dextrose/Sodium Chloride 1,000 mls @ 75 mls/hr 05/06/19 13:00 05/06/19 18:00 D5ns 0.9% 1000 Ml Bag* IV 75 mls/hr PER RATE RENAN Administration Magnesium Hydroxide 30 ml 05/06/19 10:28 Milk Of Magnesia Liq* PO Q6H PRN CONSTIPATION Methocarbamol 750 mg 05/07/19 10:12 Robaxin Tab* PO QID PRN muscle spasm or back pain Metoclopramide HCl 10 mg 05/06/19 11:35 Reglan Iv* IV Q6H PRN NAUSEA/VOMITING Multivitamins 1 tab 05/07/19 09:00 05/07/19 09:08 Theragran Tab* PO 1 tab DAILY RENAN Administration Nicotine Polacrilex 2 mg 05/06/19 10:39 Nicotine Gum* PO Q2H PRN CRAVING Nicotine Polacrilex 2 mg 05/06/19 10:40 Nicotine Lozenge Mini MT Q2H PRN CRAVING Ondansetron HCl 4 mg 05/06/19 10:42 Zofran Odt Tab* SL Q6H PRN NAUSEA/VOMITING Ondansetron HCl 4 mg 05/06/19 12:14 Zofran Inj* IV Q6H PRN NAUSEA Oxycodone HCl 5 mg 05/06/19 10:41 Roxycodone Tab* PO Q4H PRN breathrough pain Oxycodone HCl 10 mg 05/06/19 10:42 05/07/19 06:28 Roxycodone Tab* PO 10 mg Q4H PRN Administration severe breakthrough pain Oxycodone/Acetaminophen 2 tab 05/06/19 10:40 05/07/19 09:08 Percocet 5/325 Tab* PO 2 tab Q4H PRN Administration PAIN Oxycodone/Acetaminophen 1 tab 05/06/19 10:41 Percocet 5/325 Tab* PO Q4H PRN PAIN Pantoprazole Sodium 40 mg 05/06/19 18:00 05/06/19 17:50 Protonix Tab* PO 40 mg QPM RENAN Administration Pharmacy Profile Note 1 note 05/09/19 13:00 Scopolamine Patch Remove* PATCH OFF Q72H RENAN Polyethylene Glycol/Electrolytes 17 gm 05/06/19 10:39 05/07/19 09:06 Miralax* PO 17 gm DAILY PRN Administration CONSTIPATION Scopolamine 1 patch 05/06/19 13:00 05/06/19 15:38 Transderm-Scop 1.5 Mg Patch* TRANSDERM 1 patch Q72H RENAN Administration Senna 2 tab 05/06/19 10:28 05/06/19 20:28 Senokot Tab* PO 2 tab BEDTIME PRN Administration CONSTIPATION Vital Signs: Vital Signs Temp Pulse Resp BP Pulse Ox 98.7 F 82 18 113/64 95 05/07/19 05:11 05/07/19 05:11 05/07/19 09:08 05/07/19 05:11 05/07/19 05:11 Lab Results: Laboratory Results - last 24 hr 05/07/19 05/07/19 04:53 04:53 WBC 9.5 RBC 2.89 L Hgb 9.4 L Hct 28 L MCV 96 H MCH 32 H MCHC 34 RDW 12 Plt Count 208 MPV 7.3 L Neut % (Auto) 78.8 Lymph % (Auto) 10.9 [place] % (Auto) 8.7 Eos % (Auto) 1.3 Baso % (Auto) 0.3 Absolute Neuts (auto) 7.5 Absolute Lymphs (auto) 1.0 Absolute Monos (auto) 0.8 Absolute Eos (auto) 0.1 Absolute Basos (auto) 0.0 Absolute Nucleated RBC 0.0 Nucleated RBC % 0.0 Sodium 136 Potassium 4.2 Chloride 101 Carbon Dioxide 29 Anion Gap 6 BUN 10 Creatinine 0.84 Est GFR ( Amer) 112.0 Est GFR (Non-Af Amer) 92.6 BUN/Creatinine Ratio 11.9 Glucose 125 H Calcium 8.6 Total Bilirubin 0.50 AST 51 H ALT 59 H Alkaline Phosphatase 72 Total Protein 5.5 L Albumin 3.2 Globulin 2.3 Albumin/Globulin Ratio 1.4 Exam: GEN: no acute distress. alert and appropriate. looks better than yesterday LUNGS: clear bilaterally CV: regular rate and rhythm ABD: + bowel sounds, soft, non-tender, non-distended EXT: no pedal edema. no calf pain. knees wrapped and dressing c/d/i. NEURO: LE motor 5/5 bilaterally except pain limited testing of knees and hips. Sensation intact in legs and feet. SPINE: no central tenderness in lumbar spine. Pain localizes to spasm in right lumbar paraspinals. Assessment/Plan: 63yo man s/p bilateral total knee replacements #Bilateral TKA: f/u with Dr. Ortiz. PT/OT. Alternating percocet and oxycodone for pain control. May need a long acting med. #Chronic low back pain: soma at night. At home uses 6 percocet per day. Will add prn methocarbamol for muscle spasm prn #DVT ppx: Use sc lovenox until reliably not vomiting, then transition to Eliquis 2.5mg bid which is Dr. Ortiz's preference #Nausea/vomiting: scopalomine patch appears helpful. zofran prn. Continue maintenance IVF as urine appeared concentrated to me. Avoid reglan per patient and preference since 2 sons had adverse reactions. #Nicotine dependence (chewing tobacco): has nicotine gum and losenges prn #Acute post-op anemia: recheck CBC on Thursday. May have some dilution effect from IVF #Mild transaminitis: No abdominal pain. May be related to prior meds, antibiotics post-op, nausea/vomiting. Recheck P33 Thursday. #Peptic ulcer disease: continue protonix substitute for home omeprazole #Rheumatoid arthritis: at home uses meloxicam 7.5mg bid and prednisone prn flares. Off nsaids while on Eliquis. #Advanced directives: full code. is hcp. #Estimated LOS: IPOC on Thursday. 05/07/19 10:23
[2019-05-07] MEDS: D5NS 0.9% 1000 ML BAG* 1,000 ML IV SCH (11:09)
[2019-05-07] MEDS: Pantoprazole TAB * 40 MG TAB PO SCH (17:28)
[2019-05-07] MEDS: Senna TAB PO PRN (21:47)
[2019-05-07] MEDS: Carisoprodol TAB* 350 MG PO SCH (21:47)
[2019-05-07] MEDS: Magnesium Hydroxide LIQ* 30 ML UDC PO PRN (21:52)
[2019-05-08] MEDS: oxyCODONE/Acetamin 5/325 MG* TAB PO PRN ×5 (04:01→21:44)
[2019-05-08] MEDS: D5NS 0.9% 1000 ML BAG* 1,000 ML IV SCH (04:04)
[2019-05-08] MEDS: Magnesium Hydroxide LIQ* 30 ML UDC PO PRN (05:42)
[2019-05-08] MEDS: oxyCODONE TAB* 5 MG TAB PO PRN ×5 (06:51→23:03)
[2019-05-08] MEDS ORDERED: D5NS 0.9% 1000 ML BAG* 1,000 ML IV SCH (08:16)
[2019-05-08] MEDS: Docusate CAP* 100 MG PO SCH ×2 (08:28→21:48)
[2019-05-08] MEDS: Vitamin THERAPEUTIC TAB PO SCH (08:28)
[2019-05-08] MEDS: Polyethylene Glycol 3350* 17 GM PACKET PO PRN (08:29)
[2019-05-08] MEDS: Enoxaparin(*) 30 MG/0.3 ML SYR SUBCUT SCH (08:29)
--- NOTE | 2019-05-08 09:24 | PN ---
Progress Note Date of Service: 05/08/19 Note: BILL BURRELL was visited. Nursing and therapy notes read and reviewed. He walked about 20ft yesterday in the morning, but unable in the afternoon. He feels his nausea has resolved. No chest pain, shortness of breath or abdominal pain. He had a little more time between pain med doses last night. His back pain did not progress. His worst pain is in the right lateral thigh. He has more bruising in it than the left. No bowel movement yet. + flatus Current Medications: Active Medications Generic Name Dose Route Start Last Admin Trade Name Freq PRN Reason Stop Dose Admin Acetaminophen 650 mg 05/06/19 10:28 Tylenol Tab* PO Q6H PRN FEVER > 101 Al Hydrox/Mg Hydrox/Simethicone 30 ml 05/06/19 10:28 Maalox Plus* PO Q6H PRN INDIGESTION Apixaban 2.5 mg 05/09/19 09:00 Eliquis* PO BID RENAN Bisacodyl 10 mg 05/06/19 10:28 Dulcolax Supp* [place] DAILY PRN CONSTIPATION Carisoprodol 350 mg 05/06/19 21:00 05/07/19 21:47 Soma Tab* PO 350 mg BEDTIME RENAN Administration Docusate Sodium 100 mg 05/06/19 21:00 05/08/19 08:28 Colace Cap* PO 100 mg BID RENAN Administration Enoxaparin Sodium 30 mg 05/07/19 09:00 05/08/19 08:29 Lovenox(*) SUBCUT 05/08/19 23:59 30 mg Q24H RENAN Administration Dextrose/Sodium Chloride 1,000 mls @ 75 mls/hr 05/08/19 08:16 D5ns 0.9% 1000 Ml Bag* IV 05/08/19 18:00 PER RATE RENAN Magnesium Hydroxide 30 ml 05/06/19 10:28 05/08/19 05:42 Milk Of Magnesia Liq* PO 30 ml Q6H PRN Administration CONSTIPATION Methocarbamol 750 mg 05/07/19 10:12 Robaxin Tab* PO QID PRN muscle spasm or back pain Multivitamins 1 tab 05/07/19 09:00 05/08/19 08:28 Theragran Tab* PO 1 tab DAILY RENAN Administration Nicotine Polacrilex 2 mg 05/06/19 10:39 Nicotine Gum* PO Q2H PRN CRAVING Nicotine Polacrilex 2 mg 05/06/19 10:40 Nicotine Lozenge Mini MT Q2H PRN CRAVING Ondansetron HCl 4 mg 05/06/19 10:42 Zofran Odt Tab* SL Q6H PRN NAUSEA/VOMITING Ondansetron HCl 4 mg 05/06/19 12:14 Zofran Inj* IV Q6H PRN NAUSEA Oxycodone HCl 5 mg 05/06/19 10:41 Roxycodone Tab* PO Q4H PRN breathrough pain Oxycodone HCl 10 mg 05/06/19 10:42 05/08/19 06:51 Roxycodone Tab* PO 10 mg Q4H PRN Administration severe breakthrough pain Oxycodone/Acetaminophen 2 tab 05/06/19 10:40 05/08/19 08:26 Percocet 5/325 Tab* PO 2 tab Q4H PRN Administration PAIN Oxycodone/Acetaminophen 1 tab 05/06/19 10:41 Percocet 5/325 Tab* PO Q4H PRN PAIN Pantoprazole Sodium 40 mg 05/06/19 18:00 05/07/19 17:28 Protonix Tab* PO 40 mg QPM RENAN Administration Pharmacy Profile Note 1 note 05/09/19 13:00 Scopolamine Patch Remove* PATCH OFF Q72H RENAN Polyethylene Glycol/Electrolytes 17 gm 05/06/19 10:39 05/08/19 08:29 Miralax* PO 17 gm DAILY PRN Administration CONSTIPATION Scopolamine 1 patch 05/06/19 13:00 05/06/19 15:38 Transderm-Scop 1.5 Mg Patch* TRANSDERM 1 patch Q72H RENAN Administration Senna 2 tab 05/06/19 10:28 05/07/19 21:47 Senokot Tab* PO 2 tab BEDTIME PRN Administration CONSTIPATION Vital Signs: Vital Signs Temp Pulse Resp BP Pulse Ox 98.8 F 89 18 115/58 92 05/08/19 05:53 05/08/19 05:53 05/08/19 08:26 05/08/19 05:53 05/08/19 05:53 Exam: GEN: no acute distress. alert and appropriate. looks better than yesterday LUNGS: clear bilaterally CV: regular rate and rhythm ABD: + bowel sounds, soft, non-tender, non-distended EXT: no pedal edema. no calf pain. Scant-minimal serosanguinous discharge on dressings. [place] c/d/i. NEURO: LE motor 5/5 bilaterally except pain limited testing of knees and hips. Sensation intact in legs and feet. Assessment/Plan: 63yo man s/p bilateral total knee replacements #Bilateral TKA: f/u with Dr. Ortiz. PT/OT. Alternating percocet and oxycodone for pain control. May need a long acting med. #Chronic low back pain: soma at night. At home uses 6 percocet per day. Added prn methocarbamol for muscle spasm prn #DVT ppx: Discontinued Lovenox after this morning's dose since nausea/vomiting resolved. Tomorrow he will starte Eliquis 2.5mg bid which is Dr. Ortiz's preference #Nausea/vomiting: appears resolved on scopalomine patch. zofran prn. d/c IVF after current bag. Avoid reglan per patient and preference since 2 sons had adverse reactions. #Nicotine dependence (chewing tobacco): has nicotine gum and losenges prn but not using #Acute post-op anemia: recheck CBC on Thursday. May have some dilution effect from IVF #Mild transaminitis: No abdominal pain. May be related to prior meds, antibiotics post-op, nausea/vomiting. Recheck P33 Thursday. #Peptic ulcer disease: continue protonix substitute for home omeprazole #Rheumatoid arthritis: at home uses meloxicam 7.5mg bid and prednisone prn flares. Off nsaids while on Eliquis. #Advanced directives: full code. is hcp. #Estimated LOS: IPOC on Thursday. 05/08/19 09:22
[2019-05-08] MEDS: Pantoprazole TAB * 40 MG TAB PO SCH (17:40)
[2019-05-08] MEDS ORDERED: Apixaban* 2.5 MG TAB PO SCH (21:00)
[2019-05-08] MEDS: Carisoprodol TAB* 350 MG PO SCH (21:43)
[2019-05-09] MEDS: oxyCODONE/Acetamin 5/325 MG* TAB PO PRN ×3 (03:45→17:15)
[2019-05-09] MEDS: oxyCODONE TAB* 5 MG TAB PO PRN ×4 (05:19→19:51)
[2019-05-09 05:56] LABS: ABS Eosinophils 0.4 10^3/ul (0-0.6); ABS Lymphocytes 0.9 10^3/ul (1.0-4.8); ABS Monocytes 0.9 10^3/ul (0-0.8); ABS Neutrophils 5.1 10^3/ul (1.5-7.7); Eosinophil % 5.7 %; Hematocrit 23 % (42-52); Hemoglobin 7.9 g/dL (14.0-18.0); Lymphocyte % 12.4 %; Mean Corpuscular HGB Conc 34 g/dL (31-36); Mean Corpuscular Hemoglobin 32 pg (27-31); Mean Corpuscular Volume 94 fL (80-94); Mean Platelet Volume 6.9 fL (7.4-10.4); Platelet Count 262 10^3/uL (150-450); Red Blood Count 2.45 10^6 /uL (4.18-5.48); Red Cell Distribution Width 13 % (10-15); White Blood Count 7.3 10^3/uL (3.5-10.8)
[2019-05-09 06:14] LABS: Albumin 3.2 g/dL (3.2-5.2); Albumin/Globulin Ratio 1.3 (1-3); BUN/Creatinine Ratio 15.3 (8-20); Calcium 8.6 mg/dL (8.6-10.3); EGFR African American 133.8 (>60); EGFR Non-African American 110.6 (>60); Globulin 2.4 g/dL (2-4); Potassium 4.1 mmol/L (3.5-5.0); Total Bilirubin 0.7 mg/dL (0.2-1.0); Total Protein 5.6 g/dL (6.4-8.9)
[2019-05-09] MEDS: Vitamin THERAPEUTIC TAB PO SCH (07:41)
[2019-05-09] MEDS: Docusate CAP* 100 MG PO SCH ×3 (08:34→19:50)
[2019-05-09] MEDS: Apixaban* 2.5 MG TAB PO SCH ×2 (08:34→19:49)
[2019-05-09] MEDS: Scopolamine PATCH Remove* 1 NOTE MISC PATCH OFF SCH (12:04)
[2019-05-09] MEDS: Scopolamine 1.5 mg* PATCH TRANSDERM SCH (12:04)
[2019-05-09] MEDS: Polyethylene Glycol 3350* 17 GM PACKET PO PRN (12:14)
--- NOTE | 2019-05-09 12:28 | PMRUTEAM ---
PMRU: Team Meeting Current Status: Nursing: Current Status Skin Deviations [Bilateral Incision Knee] Skin Deviation Description [ Cryo unit in place Bilateral Knee] Physical Therapy: Current Status Bed Mobility Assistance Supervision Transfer Mobility Assistance Dependent Transfer/Bed Mobility Rolling Walker Recommended Devices Ambulation Assistance Min Assisit x 2 Ambulation Assistive Devices Rolling Walker Number of Feet Patient 20 Ambulated Stairs Assistance Not Tested Stairs Recommended Devices Two Rails Number of Stairs Flight Occupational Therapy: Current Status Upper Body Dressing Supervision Lower Body Dressing Max Asst,2 Person Assist Bathing Min Assist Shower Transfer Min Assist,2 Person Assist Eating Independent Rec Therapy: Current Status Summary of Assessment and Recreation Therapy services were introduced to pt. Clinical Impression and his separately. Pt. was open to conversation and cooperative throughout. Pt. identified with interests and involvement in some of them prior to admission. His main barrier has been his knees for the past 3 years. Pt. states he enjoys his life and was interested in continued leisure visits. Pt. was open to pet therapy as well. Treatment Goals Pt. will engage in leisure activities while on the unit. Treatment Plan Provide recreation therapy services and encourage involvement. Social Work: Current Status Discharge Plan return home with home care svs and family support Potential for Family Training pt's family are involved and supportive Discharge With home care svs and family support Goals: Physical Therapy: Initial Goals Bed Mobility Assistance Independent Transfer Mobility Assistance Independent Transfer/Bed Mobility Rolling Walker Recommended Devices Ambulation Independent Ambulation Recommended Devices Rolling Walker Ambulation Distance 200 Stairs Assistance Independent Stair Recommended Devices Two Rails Number of Stairs 12 Physical Therapy: Updated Goals Transfer/Bed Mobility Rolling Walker Recommended Devices Occupational Therapy: Initial Goals Goals to be Completed in (Days 7-10 ) Upper Body Bathing Routine Supervision/Set Up Lower Body Bathing Routine Supervision/Set Up Upper Body Dressing Routine Independent Lower Body Dressing Routine Modified Independent with Toilet Hygeine and Clothing Modified Independent with Management Routine Toilet Transfer Routine Modified Independent with Step-In Shower Transfer Supervision/Set Up Routine Functional Transfers for ADL Modified Independent with Grooming Routine Independent Feeding Routine Independent Light Housekeeping Tasks Minimal Contact Assist Social Work: Goals Discharge Plan return home with home care svs and family support Potential for Family Training pt's family are involved and supportive Discharge With home care svs and family support Care Plan: Care Plan ADL's - Improve/Maintain Start: 05/09/19 11:20 Freq: DAILY Status: Active Target: Protocol: Activity Type Activity Date Activity User E-Sign Co-Sign Detail Recorded Client Recorded Date Recorded By Document 05/09/19 11:20 [id number] 05/09/19 11:20 [id number] 05/09/19 11:20 PMRU Outcome: ADL's/ADL Transfers Outcome/Goals Met Pt showed increased tolerance toward therapeutic activity in terms of positive attitude and endurance. Pt was able to complete a STS transfer with Mika x1 and CGA x1. DVT Prophylaxis- Improve/Maintain Start: 05/06/19 15:17 Freq: QSHIFT Status: Active Target: Protocol: Activity Type Activity Date Activity User E-Sign Co-Sign Detail Recorded Client Recorded Date Recorded By Document 05/09/19 08:00 [id number] 05/09/19 09:53 [id number] 05/09/19 08:00 PMRU Outcome: DVT Prophylaxis Outcome/Goals Remains Free of DVT Complies with DVT Prophylaxis /Treatment Demonstrates Knowledge of DVT Prevention/ Treatment TEDS Stockings on Every AM, Off at HS Progression Toward Outcome/Goals Progressing Discharge Planning - Improve/Maintain Start: 05/06/19 15:17 Freq: DAILY Status: Active Target: Protocol: Activity Type Activity Date Activity User E-Sign Co-Sign Detail Recorded Client Recorded Date Recorded By Document 05/08/19 21:54 [id number] 05/08/19 21:54 [id number] 05/08/19 21:54 PMRU Outcome: Discharge Planning Update Patient Family No Outcome/Goals Demonstrates Understanding of Discharge Plan Progression Toward Outcome/Goals Progressing Education-Improve/Maintain Start: 05/06/19 15:17 Freq: QSHIFT Status: Active Target: Protocol: Activity Type Activity Date Activity User E-Sign Co-Sign Detail Recorded Client Recorded Date Recorded By Document 05/09/19 08:00 [id number] 05/09/19 09:53 [id number] 05/09/19 08:00 PMRU Outcome: Education Outcome/Goals Demonstrates Skills Encourage Questions Progression Toward Outcome/Goals Progressing /GI-Improve/Maintain Start: 05/06/19 15:17 Freq: QSHIFT Status: Active Target: Protocol: Activity Type Activity Date Activity User E-Sign Co-Sign Detail Recorded Client Recorded Date Recorded By Document 05/09/19 08:00 [id number] 05/09/19 09:53 [id number] 05/09/19 08:00 PMRU Outcome: Genitourinary/ Gastrointestinal Genitourinary- Outcome/Goals Maintain/ Achieve Urinary Continence Remain Free of Hospital- Acquired UTI Gastrointestinal-Outcome/Goals Maintain/ Achieve Bowel Regularity in Accordance with Pt's Baseline Prevent Constipation Laxatives as Ordered Progression Toward Outcome/Goals - Progressing Progression Toward Outcome/Goals - GI Progressing Outcome/Goals Met Comment used urinal x2 Medication Administration Start: 05/06/19 15:17 Freq: QSHIFT Status: Active Target: Protocol: Activity Type Activity Date Activity User E-Sign Co-Sign Detail Recorded Client Recorded Date Recorded By Document 05/09/19 08:00 [id number] 05/09/19 09:53 [id number] 05/09/19 08:00 PMRU Outcome: Medication Administration Assess Patient Knowledge/Teach Med Yes Education for all Meds Outcome/Goals Patient Independent with Medication Administration at Home Demonstrates Understanding Progression Towards Outcome/Goals Progressing Is Patient Going Home on Lovenox? No Pain/Comfort- Improve/Maintain Start: 05/06/19 15:17 Freq: QSHIFT Status: Active Target: Protocol: Activity Type Activity Date Activity User E-Sign Co-Sign Detail Recorded Client Recorded Date Recorded By Document 05/09/19 08:00 [id number] 05/09/19 09:53 [id number] 05/09/19 08:00 PMRU Outcome: Pain/Comfort Outcome/Goals Demonstrates Knowledge and Use of Available Comfort Measures Achieves Acceptable Comfort/Pain Level as Determined by Patient/Condit Maintain Comfort Level Allowing Patient to Fully Participate in Rehab Progression Toward Outcome/Goals Progressing Outcome/Goals Met Comment pain medication given, cryo units in place Skin- Improve/Maintain Start: 05/06/19 15:17 Freq: QSHIFT Status: Active Target: Protocol: Activity Type Activity Date Activity User E-Sign Co-Sign Detail Recorded Client Recorded Date Recorded By Document 05/09/19 08:00 [id number] 05/09/19 09:53 [id number] 05/09/19 08:00 PMRU Outcome: Skin Skin Risk Level Low Skin Orders Dressing Change Outcome/Goals Surgical Incisions Healing Progression Toward Outcome/Goals Progressing Medicine Note: Length of Stay: 9 days Anticipated Discharge Destination: Tentative Discharge Date: May 19, 2019 Discharged to: Home
[2019-05-09] MEDS ORDERED: predniSONE TAB* 10 MG PO ONE (12:46)
[2019-05-09] MEDS ORDERED: oxyCODONE SR TAB(*) 20 MG TAB.SR PO ONE (12:48)
--- NOTE | 2019-05-09 17:15 | PN ---
Progress Note Date of Service: 05/09/19 Note: BILL BURRELL was visited. Therapy notes read and reviewed. The patient felt more pain and stiffness in his hands and felt like his RA was flaring. I elected to give him a short course of Prednisone, something he would normally do at home. In addition, his pain was not well controlled. He told me he mormally takes Percocet 5/325, 4-6 tablets a day at home. He is a longstanding patient of Dr. Brooks. We will add OxyContin 20 mg BID and try to taper off additional oxycodone (he is getting both oxycodone and Percocet for SAOs). Hemoglobin 7.9 Current Medications: Active Medications Generic Name Dose Route Start Last Admin Trade Name Freq PRN Reason Stop Dose Admin Acetaminophen 650 mg 05/06/19 10:28 Tylenol Tab* PO Q6H PRN FEVER > 101 Al Hydrox/Mg Hydrox/Simethicone 30 ml 05/06/19 10:28 Maalox Plus* PO Q6H PRN INDIGESTION Apixaban 2.5 mg 05/09/19 09:00 05/09/19 08:34 Eliquis* PO 2.5 mg BID RENAN Administration Bisacodyl 10 mg 05/06/19 10:28 Dulcolax Supp* [place] DAILY PRN CONSTIPATION Carisoprodol 350 mg 05/06/19 21:00 05/08/19 21:43 Soma Tab* PO 350 mg BEDTIME RENAN Administration Docusate Sodium 100 mg 05/06/19 21:00 05/09/19 12:07 Colace Cap* PO 100 mg BID RENAN Administration Magnesium Hydroxide 30 ml 05/06/19 10:28 05/08/19 05:42 Milk Of Magnesia Liq* PO 30 ml Q6H PRN Administration CONSTIPATION Methocarbamol 750 mg 05/07/19 10:12 Robaxin Tab* PO QID PRN muscle spasm or back pain Multivitamins 1 tab 05/07/19 09:00 05/09/19 07:41 Theragran Tab* PO 1 tab DAILY RENAN Administration Nicotine Polacrilex 2 mg 05/06/19 10:39 Nicotine Gum* PO Q2H PRN CRAVING Nicotine Polacrilex 2 mg 05/06/19 10:40 Nicotine Lozenge Mini MT Q2H PRN CRAVING Ondansetron HCl 4 mg 05/06/19 10:42 05/09/19 08:47 Zofran Odt Tab* SL 4 mg Q6H PRN Administration NAUSEA/VOMITING Ondansetron HCl 4 mg 05/06/19 12:14 Zofran Inj* IV Q6H PRN NAUSEA Oxycodone HCl 10 mg 05/06/19 10:42 05/09/19 14:09 Roxycodone Tab* PO 10 mg Q4H PRN Administration severe breakthrough pain Oxycodone HCl 20 mg 05/09/19 21:00 Oxycontin(*) PO Q12HR RENAN Oxycodone/Acetaminophen 2 tab 05/06/19 10:40 05/09/19 07:40 Percocet 5/325 Tab* PO 2 tab Q4H PRN Administration PAIN Oxycodone/Acetaminophen 1 tab 05/06/19 10:41 Percocet 5/325 Tab* PO Q4H PRN PAIN Pantoprazole Sodium 40 mg 05/06/19 18:00 05/08/19 17:40 Protonix Tab* PO 40 mg QPM RENAN Administration Pharmacy Profile Note 1 note 05/09/19 13:00 05/09/19 12:04 Scopolamine Patch Remove* PATCH OFF Not Given Q72H RENAN Polyethylene Glycol/Electrolytes 17 gm 05/06/19 10:39 05/09/19 12:14 Miralax* PO 17 gm DAILY PRN Administration CONSTIPATION Prednisone 30 mg 05/10/19 09:00 Deltasone Tab* PO 05/11/19 23:59 DAILY RENAN Prednisone 20 mg 05/12/19 09:00 Deltasone Tab* PO 05/14/19 23:59 DAILY RENAN Prednisone 10 mg 05/15/19 09:00 Deltasone Tab* PO 05/17/19 23:55 DAILY RENAN Scopolamine 1 patch 05/06/19 13:00 05/09/19 12:04 Transderm-Scop 1.5 Mg Patch* TRANSDERM 1 patch Q72H RENAN Administration Senna 2 tab 05/06/19 10:28 05/07/19 21:47 Senokot Tab* PO 2 tab BEDTIME PRN Administration CONSTIPATION Vital Signs: Vital Signs Temp Pulse Resp BP Pulse Ox 98.6 F 88 16 119/62 93 05/09/19 15:39 05/09/19 15:39 06/10/19 15:39 05/09/19 15:39 05/09/19 16:15 Lab Results: Laboratory Results - last 24 hr 05/09/19 05/09/19 05:42 05:42 WBC 7.3 RBC 2.45 L Hgb 7.9 L Hct 23 L MCV 94 MCH 32 H MCHC 34 RDW 13 Plt Count 262 MPV 6.9 L Neut % (Auto) 69.3 Lymph % (Auto) 12.4 [place] % (Auto) 12.0 Eos % (Auto) 5.7 Baso % (Auto) 0.6 Absolute Neuts (auto) 5.1 Absolute Lymphs (auto) 0.9 L Absolute Monos (auto) 0.9 H Absolute Eos (auto) 0.4 Absolute Basos (auto) 0.0 Absolute Nucleated RBC 0.0 Nucleated RBC % 0.0 Sodium 135 Potassium 4.1 Chloride 100 L Carbon Dioxide 30 Anion Gap 5 BUN 11 Creatinine 0.72 Est GFR ( Amer) 133.8 Est GFR (Non-Af Amer) 110.6 BUN/Creatinine Ratio 15.3 Glucose 116 H Calcium 8.6 Total Bilirubin 0.70 AST 25 ALT 29 Alkaline Phosphatase 60 Total Protein 5.6 L Albumin 3.2 Globulin 2.4 Albumin/Globulin Ratio 1.3 Exam: GENERAL: no acute distress. alert and appropriate. looks better than yesterday LUNGS: clear bilaterally HEART: regular rate and rhythm ABDOMEN: + bowel sounds, soft, non-tender, non-distended EXTREMITIES: no pedal edema. no calf pain. [place] c/d/i. NEUROLOGIC: LE motor 5/5 bilaterally except pain limited testing of knees and hips. Sensation intact in legs and feet. Assessment/Plan: 63yo man s/p bilateral total knee replacements 1. Bilateral TKA: f/u with Dr. Ortiz. PT/OT. Added OxyContin for pain control. Will try to taper oxycodone 2. Chronic low back pain: Soma at night. At home uses 4-6 percocet per day. 3. DVT prophylaxis: Eliquis 2.5mg bid 4. Nausea/vomiting: appears resolved on scopalomine patch. zofran prn. 5. Nicotine dependence (chewing tobacco): has nicotine gum and losenges prn but not using 6. Acute post-op anemia: Hemoglobin 7.9. Will recheck Thursday 7. Mild transaminitis: Resolved. 8. Peptic ulcer disease: continue protonix substitute for home omeprazole 9. Rheumatoid arthritis: prednisone short course for flare. Off nsaids while on Eliquis. 10. Advanced directives: full code. is hcp. 05/09/19 17:16 05/09/19 17:21
[2019-05-09] MEDS: Pantoprazole TAB * 40 MG TAB PO SCH (17:16)
[2019-05-09] MEDS: Carisoprodol TAB* 350 MG PO SCH (19:50)
[2019-05-09] MEDS: Senna TAB PO PRN (19:50)
[2019-05-09] MEDS: oxyCODONE SR TAB(*) 20 MG TAB.SR PO SCH (19:52)
[2019-05-10] MEDS: oxyCODONE TAB* 5 MG TAB PO PRN ×5 (01:30→23:30)
[2019-05-10] MEDS: oxyCODONE SR TAB(*) 20 MG TAB.SR PO SCH ×2 (07:39→21:38)
[2019-05-10] MEDS: Docusate CAP* 100 MG PO SCH ×2 (07:40→21:37)
[2019-05-10] MEDS: Apixaban* 2.5 MG TAB PO SCH ×2 (07:41→21:37)
[2019-05-10] MEDS: Vitamin THERAPEUTIC TAB PO SCH (07:41)
[2019-05-10] MEDS: predniSONE TAB* 10 MG PO SCH (07:41)
[2019-05-10] MEDS: oxyCODONE/Acetamin 5/325 MG* TAB PO PRN ×3 (09:20→18:38)
--- NOTE | 2019-05-10 12:46 | PMRUTEAM ---
PMRU: Team Meeting Current Status: Nursing: Current Status Skin Deviations [Bilateral Incision Knee] Skin Deviation Description [ drsg/cryounits bilat Bilateral Knee] Physical Therapy: Current Status Bed Mobility Assistance Supervision Transfer Mobility Assistance Contact Guard Assist,Min Assist Transfer/Bed Mobility Rolling Walker Recommended Devices Ambulation Assistance Contact Guard Assist,Min Assist Ambulation Assistive Devices Rolling Walker Number of Feet Patient 120 Ambulated Stairs Assistance Min Assist Stairs Recommended Devices Two Rails Number of Stairs 1 Occupational Therapy: Current Status Upper Body Dressing Supervision Lower Body Dressing Contact Guard Assist,Min Assist Bathing Mod Assist Toileting Mod Assist Toilet Transfer Contact Guard Assist Shower Transfer Min Assist,2 Person Assist Eating Independent Rec Therapy: Current Status Summary of Assessment and Recreation Therapy assessment complete and pt. is Clinical Impression aware of services. Pt. has been engaged in leisure visits and in pet therapy while on the unit. Pt. has been pleasant and cooperative. Treatment Goals Pt. will continue to engage in leisure activities while on the unit. Treatment Plan Provide recreation therapy and encourage involvement. Social Work: Current Status Discharge Plan return home with community svs and family support Potential for Family Training pt's family are involved and supportive Anticipated Discharge Home Destination Discharge With community services and family support Nutrition: Current Status Monitoring pt s/p bilat TKA 05/04/19. Regular diet is appropriate. Pt accepting variable amounts, averaging ~65% of meals at this time. Full nutrition assessment planned on or before 05/13. Tentative nutrition goals as outlined below. Goals: Physical Therapy: Initial Goals Bed Mobility Assistance Independent Transfer Mobility Assistance Independent Transfer/Bed Mobility Rolling Walker Recommended Devices Ambulation Independent Ambulation Recommended Devices Rolling Walker Ambulation Distance 200 Stairs Assistance Independent Stair Recommended Devices Two Rails Number of Stairs 12 Physical Therapy: Updated Goals Transfer/Bed Mobility Rolling Walker Recommended Devices Occupational Therapy: Initial Goals Goals to be Completed in (Days 7-10 ) Upper Body Bathing Routine Supervision/Set Up Lower Body Bathing Routine Supervision/Set Up Upper Body Dressing Routine Independent Lower Body Dressing Routine Modified Independent with Toilet Hygeine and Clothing Modified Independent with Management Routine Toilet Transfer Routine Modified Independent with Step-In Shower Transfer Supervision/Set Up Routine Functional Transfers for ADL Modified Independent with Grooming Routine Independent Feeding Routine Independent Light Housekeeping Tasks Minimal Contact Assist Nutrition: Goals Intervention Goals 1. adequate intake to support hydration, stable wt, and lean body mass 2. maintain serum electrolytes WNL 3. regulation of bowel pattern; no c/o constipation (or diarrhea) Social Work: Goals Discharge Plan return home with community svs and family support Potential for Family Training pt's family are involved and supportive Anticipated Discharge Home Destination Discharge With community services and family support Care Plan: Care Plan ADL's - Improve/Maintain Start: 05/09/19 11:20 Freq: DAILY Status: Active Target: Protocol: Activity Type Activity Date Activity User E-Sign Co-Sign Detail Recorded Client Recorded Date Recorded By Document 05/09/19 15:25 [id number] 05/09/19 15:26 [id number] 05/09/19 15:25 PMRU Outcome: ADL's/ADL Transfers Orders/Interventions Occupational Therapy Evaluation & Treatment Communication Tool in Patient Room Device Yes: FWW Patient to receive OT 5x/wk for 60-120 Therex min/day Self Care Management Group Therapy UE/LE ADL's with Assist Yes: mod I ADL Transfers with Assist Yes: mod I Toileting: Transfers,Clothing Management Yes: mod I ,Hygeine w/Assist Light Kitchen/Laundry w/Assist Yes: mod I Outcome/Goals Met Pt showed increased tolerance toward therapeutic activity in terms of positive attitude and endurance. Pt was able to complete a STS transfer with Mika x1 and CGA x1. DVT Prophylaxis- Improve/Maintain Start: 05/06/19 15:17 Freq: QSHIFT Status: Active Target: Protocol: Activity Type Activity Date Activity User E-Sign Co-Sign Detail Recorded Client Recorded Date Recorded By Document 05/09/19 16:18 [id number] 05/09/19 16:18 [id number] 05/09/19 16:18 PMRU Outcome: DVT Prophylaxis Outcome/Goals Remains Free of DVT Complies with DVT Prophylaxis /Treatment Demonstrates Knowledge of DVT Prevention/ Treatment TEDS Stockings on Every AM, Off at HS Progression Toward Outcome/Goals Progressing Discharge Planning - Improve/Maintain Start: 05/06/19 15:17 Freq: DAILY Status: Active Target: Protocol: Activity Type Activity Date Activity User E-Sign Co-Sign Detail Recorded Client Recorded Date Recorded By Document 05/10/19 00:00 [id number] 05/10/19 00:49 [id number] 05/10/19 00:00 PMRU Outcome: Discharge Planning Update Patient Family No Outcome/Goals Demonstrates Understanding of Discharge Plan Progression Toward Outcome/Goals Progressing Education-Improve/Maintain Start: 05/06/19 15:17 Freq: QSHIFT Status: Active Target: Protocol: Activity Type Activity Date Activity User E-Sign Co-Sign Detail Recorded Client Recorded Date Recorded By Document 05/09/19 16:18 [id number] 05/09/19 16:18 [id number] 05/09/19 16:18 PMRU Outcome: Education Outcome/Goals Demonstrates Skills Encourage Questions Progression Toward Outcome/Goals Progressing /GI-Improve/Maintain Start: 05/06/19 15:17 Freq: QSHIFT Status: Active Target: Protocol: Activity Type Activity Date Activity User E-Sign Co-Sign Detail Recorded Client Recorded Date Recorded By Document 05/09/19 16:18 [id number] [id number] 05/09/19 16:18 [id number] 05/09/19 16:18 PMRU Outcome: Genitourinary/ Gastrointestinal Genitourinary- Outcome/Goals Maintain/ Achieve Urinary Continence Remain Free of Hospital- Acquired UTI Gastrointestinal-Outcome/Goals Maintain/ Achieve Bowel Regularity in Accordance with Pt's Baseline Prevent Constipation Laxatives as Ordered Progression Toward Outcome/Goals - Progressing Progression Toward Outcome/Goals - GI Progressing Medication Administration Start: 05/06/19 15:17 Freq: QSHIFT Status: Active Target: Protocol: Activity Type Activity Date Activity User E-Sign Co-Sign Detail Recorded Client Recorded Date Recorded By Document 05/09/19 16:18 [id number] 05/09/19 16:18 [id number] 05/09/19 16:18 PMRU Outcome: Medication Administration Assess Patient Knowledge/Teach Med Yes Education for all Meds Outcome/Goals Patient Independent with Medication Administration at Home Demonstrates Understanding Progression Towards Outcome/Goals Progressing Is Patient Going Home on Lovenox? No Pain/Comfort- Improve/Maintain Start: 05/06/19 15:17 Freq: QSHIFT Status: Active Target: Protocol: Activity Type Activity Date Activity User E-Sign Co-Sign Detail Recorded Client Recorded Date Recorded By Document 05/09/19 16:18 [id number] 05/09/19 16:18 [id number] 05/09/19 16:18 PMRU Outcome: Pain/Comfort Outcome/Goals Demonstrates Knowledge and Use of Available Comfort Measures Achieves Acceptable Comfort/Pain Level as Determined by Patient/Condit Maintain Comfort Level Allowing Patient to Fully Participate in Rehab Progression Toward Outcome/Goals Progressing Skin- Improve/Maintain Start: 05/06/19 15:17 Freq: QSHIFT Status: Active Target: Protocol: Activity Type Activity Date Activity User E-Sign Co-Sign Detail Recorded Client Recorded Date Recorded By Document 05/09/19 16:18 [id number] 05/09/19 16:18 [id number] 05/09/19 16:18 PMRU Outcome: Skin Skin Risk Level Low Skin Orders Dressing Change Outcome/Goals Surgical Incisions Healing Progression Toward Outcome/Goals Progressing Medicine Note: Length of Stay: 9 days Anticipated Discharge Destination: Home Tentative Discharge Date: 05/19/19 Discharged to: Home
[2019-05-10] MEDS: Pantoprazole TAB * 40 MG TAB PO SCH (18:30)
[2019-05-10] MEDS: Magnesium Hydroxide LIQ* 30 ML UDC PO PRN (18:30)
--- NOTE | 2019-05-10 19:46 | PN ---
Progress Note Date of Service: 05/10/19 Note: BILL BURRELL was visited. Therapy notes read and reviewed. He was discussed in interdisciplinary team rounds. He thinks the steroids helped but he also thinks he needs the pain meds every two hours. I told him we would not continue doing this. We would move to every 4 hours with a CUBAN Current Medications: Active Medications Generic Name Dose Route Start Last Admin Trade Name Freq PRN Reason Stop Dose Admin Acetaminophen 650 mg 05/06/19 10:28 Tylenol Tab* PO Q6H PRN FEVER > 101 Al Hydrox/Mg Hydrox/Simethicone 30 ml 05/06/19 10:28 Maalox Plus* PO Q6H PRN INDIGESTION Apixaban 2.5 mg 05/09/19 09:00 05/10/19 07:41 Eliquis* PO 2.5 mg BID RENAN Administration Bisacodyl 10 mg 05/06/19 10:28 Dulcolax Supp* [place] DAILY PRN CONSTIPATION Carisoprodol 350 mg 05/06/19 21:00 05/09/19 19:50 Soma Tab* PO 350 mg BEDTIME RENAN Administration Docusate Sodium 100 mg 05/06/19 21:00 05/10/19 07:40 Colace Cap* PO 100 mg BID RENAN Administration Magnesium Hydroxide 30 ml 05/06/19 10:28 05/10/19 18:30 Milk Of Magnesia Liq* PO 30 ml Q6H PRN Administration CONSTIPATION Methocarbamol 750 mg 05/07/19 10:12 Robaxin Tab* PO QID PRN muscle spasm or back pain Multivitamins 1 tab 05/07/19 09:00 05/10/19 07:41 Theragran Tab* PO 1 tab DAILY RENAN Administration Nicotine Polacrilex 2 mg 05/06/19 10:39 Nicotine Gum* PO Q2H PRN CRAVING Nicotine Polacrilex 2 mg 05/06/19 10:40 Nicotine Lozenge Mini MT Q2H PRN CRAVING Ondansetron HCl 4 mg 05/06/19 10:42 05/09/19 08:47 Zofran Odt Tab* SL 4 mg Q6H PRN Administration NAUSEA/VOMITING Ondansetron HCl 4 mg 05/06/19 12:14 Zofran Inj* IV Q6H PRN NAUSEA Oxycodone HCl 10 mg 05/06/19 10:42 05/10/19 16:56 Roxycodone Tab* PO 10 mg Q4H PRN Administration severe breakthrough pain Oxycodone HCl 20 mg 05/09/19 21:00 05/10/19 07:39 Oxycontin(*) PO 20 mg Q12HR RENAN Administration Oxycodone/Acetaminophen 2 tab 05/06/19 10:40 05/10/19 18:38 Percocet 5/325 Tab* PO 2 tab Q4H PRN Administration PAIN Oxycodone/Acetaminophen 1 tab 05/06/19 10:41 Percocet 5/325 Tab* PO Q4H PRN PAIN Pantoprazole Sodium 40 mg 05/06/19 18:00 05/10/19 18:30 Protonix Tab* PO 40 mg QPM RENAN Administration Pharmacy Profile Note 1 note 05/09/19 13:00 05/09/19 12:04 Scopolamine Patch Remove* PATCH OFF Not Given Q72H [facility] Polyethylene Glycol/Electrolytes 17 gm 05/06/19 10:39 05/09/19 12:14 Miralax* PO 17 gm DAILY PRN Administration CONSTIPATION Prednisone 30 mg 05/10/19 09:00 05/10/19 07:41 Deltasone Tab* PO 05/11/19 23:59 30 mg DAILY RENAN Administration Prednisone 20 mg 05/12/19 09:00 Deltasone Tab* PO 05/14/19 23:59 DAILY RENAN Prednisone 10 mg 05/15/19 09:00 Deltasone Tab* PO 05/17/19 23:55 DAILY RENAN Scopolamine 1 patch 05/06/19 13:00 05/09/19 12:04 Transderm-Scop 1.5 Mg Patch* TRANSDERM 1 patch Q72H RENAN Administration Senna 2 tab 05/06/19 10:28 05/09/19 19:50 Senokot Tab* PO 2 tab BEDTIME PRN Administration CONSTIPATION Vital Signs: Vital Signs Temp Pulse Resp BP Pulse Ox 98.5 F 74 16 108/91 95 05/10/19 16:31 05/10/19 16:31 05/10/19 18:38 05/10/19 16:31 05/10/19 18:04 Exam: GENERAL: no acute distress. alert and appropriate. looks better than yesterday LUNGS: clear bilaterally HEART: regular rate and rhythm ABDOMEN: + bowel sounds, soft, non-tender, non-distended EXTREMITIES: no pedal edema. no calf pain. [place] c/d/i. NEUROLOGIC: LE motor 5/5 bilaterally except pain limited testing of knees and hips. Sensation intact in legs and feet. Assessment/Plan: 63yo man s/p bilateral total knee replacements 1. Bilateral TKA: f/u with Dr. Ortiz. PT/OT. Added OxyContin for pain control. Will change oxycodone to 15 mg PO Q4 PRN but not in addition to Percocet 2. Chronic low back pain: S[place] at night. At home uses 4-6 percocet per day. 3. DVT prophylaxis: Eliquis 2.5mg bid 4. Nausea/vomiting: appears resolved on scopalomine patch. zofran prn. 5. Nicotine dependence (chewing tobacco): has nicotine gum and losenges prn but not using 6. Acute post-op anemia: Hemoglobin 7.9. Will recheck tomorrow 7. Mild transaminitis: Resolved. 8. Peptic ulcer disease: continue protonix substitute for home omeprazole 9. Rheumatoid arthritis: prednisone short course for flare. Off nsaids while on Eliquis. 10. Advanced directives: full code. is hcp. 05/10/19 19:46
[2019-05-10] MEDS: Carisoprodol TAB* 350 MG PO SCH (21:37)
[2019-05-11] MEDS: oxyCODONE TAB* 5 MG TAB PO PRN ×4 (04:05→22:20)
[2019-05-11 07:34] LABS: ABS Basophils 0.1 10^3/ul (0-0.2); ABS Eosinophils 0.7 10^3/ul (0-0.6); ABS Lymphocytes 2.3 10^3/ul (1.0-4.8); ABS Monocytes 1.1 10^3/ul (0-0.8); ABS Neutrophils 4.8 10^3/ul (1.5-7.7); Eosinophil % 7.6 %; Hematocrit 24 % (42-52); Hemoglobin 8.2 g/dL (14.0-18.0); Lymphocyte % 26.1 %; Mean Corpuscular HGB Conc 34 g/dL (31-36); Mean Corpuscular Hemoglobin 32 pg (27-31); Mean Corpuscular Volume 94 fL (80-94); Mean Platelet Volume 6.9 fL (7.4-10.4); Nucleated Red Blood Cells % 0.1; Platelet Count 376 10^3/uL (150-450); Red Cell Distribution Width 13 % (10-15)
[2019-05-11 07:45] LABS: Albumin 3.4 g/dL (3.2-5.2); Albumin/Globulin Ratio 1.4 (1-3); BUN/Creatinine Ratio 17.1 (8-20); Calcium 8.7 mg/dL (8.6-10.3); EGFR African American 125.8 (>60); EGFR Non-African American 103.9 (>60); Globulin 2.5 g/dL (2-4); Potassium 3.8 mmol/L (3.5-5.0); Total Bilirubin 0.9 mg/dL (0.2-1.0); Total Protein 5.9 g/dL (6.4-8.9)
[2019-05-11] MEDS: oxyCODONE SR TAB(*) 20 MG TAB.SR PO SCH ×2 (07:58→21:02)
[2019-05-11] MEDS: Apixaban* 2.5 MG TAB PO SCH ×2 (07:58→21:01)
[2019-05-11] MEDS: Docusate CAP* 100 MG PO SCH ×2 (07:58→21:02)
[2019-05-11] MEDS: Vitamin THERAPEUTIC TAB PO SCH (07:59)
[2019-05-11] MEDS: predniSONE TAB* 10 MG PO SCH (07:59)
[2019-05-11] MEDS: oxyCODONE/Acetamin 5/325 MG* TAB PO PRN ×2 (14:07→21:10)
[2019-05-11] MEDS: Pantoprazole TAB * 40 MG TAB PO SCH (17:36)
--- NOTE | 2019-05-11 20:57 | PN ---
Progress Note Date of Service: 05/11/19 Note: BILL BURRELL was visited. Therapy notes read and reviewed. Patient visited. He thinks the oxycodone 15 mg is working ok, also now on OxyContin. Hb 8.2 Current Medications: Active Medications Generic Name Dose Route Start Last Admin Trade Name Freq PRN Reason Stop Dose Admin Acetaminophen 650 mg 05/06/19 10:28 Tylenol Tab* PO Q6H PRN FEVER > 101 Al Hydrox/Mg Hydrox/Simethicone 30 ml 05/06/19 10:28 Maalox Plus* PO Q6H PRN INDIGESTION Apixaban 2.5 mg 05/09/19 09:00 05/11/19 07:58 Eliquis* PO 2.5 mg BID RENAN Administration Bisacodyl 10 mg 05/06/19 10:28 Dulcolax Supp* [place] DAILY PRN CONSTIPATION Carisoprodol 350 mg 05/06/19 21:00 05/10/19 21:37 Soma Tab* PO 350 mg BEDTIME RENAN Administration Docusate Sodium 100 mg 05/06/19 21:00 05/11/19 07:58 Colace Cap* PO 100 mg BID RENAN Administration Magnesium Hydroxide 30 ml 05/06/19 10:28 05/10/19 18:30 Milk Of Magnesia Liq* PO 30 ml Q6H PRN Administration CONSTIPATION Methocarbamol 750 mg 05/07/19 10:12 Robaxin Tab* PO QID PRN muscle spasm or back pain Multivitamins 1 tab 05/07/19 09:00 05/11/19 07:59 Theragran Tab* PO 1 tab DAILY RENAN Administration Nicotine Polacrilex 2 mg 05/06/19 10:39 Nicotine Gum* PO Q2H PRN CRAVING Nicotine Polacrilex 2 mg 05/06/19 10:40 Nicotine Lozenge Mini MT Q2H PRN CRAVING Ondansetron HCl 4 mg 05/06/19 10:42 05/09/19 08:47 Zofran Odt Tab* SL 4 mg Q6H PRN Administration NAUSEA/VOMITING Ondansetron HCl 4 mg 05/06/19 12:14 Zofran Inj* IV Q6H PRN NAUSEA Oxycodone HCl 20 mg 05/09/19 21:00 05/11/19 07:58 Oxycontin(*) PO 20 mg Q12HR RENAN Administration Oxycodone HCl 15 mg 05/10/19 19:49 05/11/19 17:36 Roxycodone Tab* PO 15 mg Q4H PRN Administration severe breakthrough pain Oxycodone/Acetaminophen 2 tab 05/06/19 10:40 05/11/19 14:07 Percocet 5/325 Tab* PO 2 tab Q4H PRN Administration PAIN Oxycodone/Acetaminophen 1 tab 05/06/19 10:41 Percocet 5/325 Tab* PO Q4H PRN PAIN Pantoprazole Sodium 40 mg 05/06/19 18:00 05/11/19 17:36 Protonix Tab* PO 40 mg QPM RENAN Administration Pharmacy Profile Note 1 note 05/09/19 13:00 05/09/19 12:04 Scopolamine Patch Remove* PATCH OFF Not Given Q72H RENAN Polyethylene Glycol/Electrolytes 17 gm 05/06/19 10:39 05/09/19 12:14 Miralax* PO 17 gm DAILY PRN Administration CONSTIPATION Prednisone 30 mg 05/10/19 09:00 05/11/19 07:59 Deltasone Tab* PO 05/11/19 23:59 30 mg DAILY RENAN Administration Prednisone 20 mg 05/12/19 09:00 Deltasone Tab* PO 05/14/19 23:59 DAILY RENAN Prednisone 10 mg 05/15/19 09:00 Deltasone Tab* PO 05/17/19 23:55 DAILY RENAN Scopolamine 1 patch 05/06/19 13:00 05/09/19 12:04 Transderm-Scop 1.5 Mg Patch* TRANSDERM 1 patch Q72H RENAN Administration Senna 2 tab 05/06/19 10:28 05/09/19 19:50 Senokot Tab* PO 2 tab BEDTIME PRN Administration CONSTIPATION Vital Signs: Vital Signs Temp Pulse Resp BP Pulse Ox 98.4 F 81 18 138/87 96 05/11/19 16:21 05/11/19 16:21 05/11/19 17:38 05/11/19 16:21 05/11/19 16:21 Lab Results: Laboratory Results - last 24 hr 05/11/19 05/11/19 07:10 07:10 WBC 9.0 RBC 2.60 L Hgb 8.2 L Hct 24 L MCV 94 MCH 32 H MCHC 34 RDW 13 Plt Count 376 MPV 6.9 L Neut % (Auto) 53.4 Lymph % (Auto) 26.1 [place] % (Auto) 12.3 Eos % (Auto) 7.6 Baso % (Auto) 0.6 Absolute Neuts (auto) 4.8 Absolute Lymphs (auto) 2.3 Absolute Monos (auto) 1.1 H Absolute Eos (auto) 0.7 H Absolute Basos (auto) 0.1 Absolute Nucleated RBC 0.0 Nucleated RBC % 0.1 Sodium 139 Potassium 3.8 Chloride 102 Carbon Dioxide 31 Anion Gap 6 BUN 13 Creatinine 0.76 Est GFR ( Amer) 125.8 Est GFR (Non-Af Amer) 103.9 BUN/Creatinine Ratio 17.1 Glucose 102 H Calcium 8.7 Total Bilirubin 0.90 AST 21 ALT 23 Alkaline Phosphatase 55 Total Protein 5.9 L Albumin 3.4 Globulin 2.5 Albumin/Globulin Ratio 1.4 Exam: GENERAL: no acute distress. alert and appropriate. looks better than yesterday LUNGS: clear bilaterally HEART: regular rate and rhythm ABDOMEN: + bowel sounds, soft, non-tender, non-distended EXTREMITIES: no pedal edema. no calf pain. [place] c/d/i. NEUROLOGIC: LE motor 5/5 bilaterally except pain limited testing of knees and hips. Sensation intact in legs and feet. Assessment/Plan: 63yo man s/p bilateral total knee replacements 1. Bilateral TKA: f/u with Dr. Ortiz. PT/OT. Added OxyContin for pain control. Oxycodone 15 mg PO Q4 PRN or Percocet Q4 PRN 2. Chronic low back pain: Soma at night. At home uses 4-6 percocet per day. 3. DVT prophylaxis: Eliquis 2.5mg bid 4. Nausea/vomiting: appears resolved on scopalomine patch. zofran prn. 5. Nicotine dependence (chewing tobacco): has nicotine gum and losenges prn but not using 6. Acute post-op anemia: Hemoglobin 8.2. 7. Peptic ulcer disease: continue protonix substitute for home omeprazole 8. Rheumatoid arthritis: prednisone short course for flare. Off NSAIDs while on Eliquis. 9. Advanced directives: full code. is hcp. 05/11/19 20:58
[2019-05-11] MEDS: Senna TAB PO PRN (21:01)
[2019-05-11] MEDS: Carisoprodol TAB* 350 MG PO SCH (21:01)
[2019-05-12] MEDS: oxyCODONE TAB* 5 MG TAB PO PRN ×5 (02:41→18:34)
[2019-05-12] MEDS: oxyCODONE SR TAB(*) 20 MG TAB.SR PO SCH ×2 (08:15→20:56)
[2019-05-12] MEDS: Vitamin THERAPEUTIC TAB PO SCH (08:15)
[2019-05-12] MEDS: Docusate CAP* 100 MG PO SCH ×2 (08:15→20:55)
[2019-05-12] MEDS: Apixaban* 2.5 MG TAB PO SCH ×2 (08:15→20:57)
[2019-05-12] MEDS: predniSONE TAB* 20 MG PO SCH (08:15)
[2019-05-12] MEDS: Scopolamine 1.5 mg* PATCH TRANSDERM SCH (14:36)
[2019-05-12] MEDS: Scopolamine PATCH Remove* 1 NOTE MISC PATCH OFF SCH (14:37)
--- NOTE | 2019-05-12 15:57 | PN ---
Progress Note Date of Service: 05/12/19 Note: BILL BURRELL was visited. Therapy notes read and reviewed. He has no complaints at present. Feels good. Current Medications: Active Medications Generic Name Dose Route Start Last Admin Trade Name Freq PRN Reason Stop Dose Admin Acetaminophen 650 mg 05/06/19 10:28 Tylenol Tab* PO Q6H PRN FEVER > 101 Al Hydrox/Mg Hydrox/Simethicone 30 ml 05/06/19 10:28 Maalox Plus* PO Q6H PRN INDIGESTION Apixaban 2.5 mg 05/09/19 09:00 05/12/19 08:15 Eliquis* PO 2.5 mg BID RENAN Administration Bisacodyl 10 mg 05/06/19 10:28 Dulcolax Supp* [place] DAILY PRN CONSTIPATION Carisoprodol 350 mg 05/06/19 21:00 05/11/19 21:01 Soma Tab* PO 350 mg BEDTIME RENAN Administration Docusate Sodium 100 mg 05/06/19 21:00 05/12/19 08:15 Colace Cap* PO 100 mg BID RENAN Administration Magnesium Hydroxide 30 ml 05/06/19 10:28 05/10/19 18:30 Milk Of Magnesia Liq* PO 30 ml Q6H PRN Administration CONSTIPATION Methocarbamol 750 mg 05/07/19 10:12 Robaxin Tab* PO QID PRN muscle spasm or back pain Multivitamins 1 tab 05/07/19 09:00 05/12/19 08:15 Theragran Tab* PO 1 tab DAILY RENAN Administration Nicotine Polacrilex 2 mg 05/06/19 10:39 Nicotine Gum* PO Q2H PRN CRAVING Nicotine Polacrilex 2 mg 05/06/19 10:40 Nicotine Lozenge Mini MT Q2H PRN CRAVING Ondansetron HCl 4 mg 05/06/19 10:42 05/09/19 08:47 Zofran Odt Tab* SL 4 mg Q6H PRN Administration NAUSEA/VOMITING Ondansetron HCl 4 mg 05/06/19 12:14 Zofran Inj* IV Q6H PRN NAUSEA Oxycodone HCl 20 mg 05/09/19 21:00 05/12/19 08:15 Oxycontin(*) PO 20 mg Q12HR RENAN Administration Oxycodone HCl 15 mg 05/10/19 19:49 06/13/19 14:35 Roxycodone Tab* PO 15 mg Q4H PRN Administration severe breakthrough pain Oxycodone/Acetaminophen 2 tab 05/06/19 10:40 05/11/19 21:10 Percocet 5/325 Tab* PO 2 tab Q4H PRN Administration PAIN Oxycodone/Acetaminophen 1 tab 05/06/19 10:41 Percocet 5/325 Tab* PO Q4H PRN PAIN Pantoprazole Sodium 40 mg 05/06/19 18:00 05/11/19 17:36 Protonix Tab* PO 40 mg QPM RENAN Administration Pharmacy Profile Note 1 note 05/09/19 13:00 05/12/19 14:37 Scopolamine Patch Remove* PATCH OFF Not Given Q72H [facility] Polyethylene Glycol/Electrolytes 17 gm 05/06/19 10:39 05/09/19 12:14 Miralax* PO 17 gm DAILY PRN Administration CONSTIPATION Prednisone 20 mg 05/12/19 09:00 05/12/19 08:15 Deltasone Tab* PO 05/14/19 23:59 20 mg DAILY RENAN Administration Prednisone 10 mg 05/15/19 09:00 Deltasone Tab* PO 05/17/19 23:55 DAILY RENAN Scopolamine 1 patch 05/06/19 13:00 05/12/19 14:36 Transderm-Scop 1.5 Mg Patch* TRANSDERM 1 patch Q72H [facility] Administration Senna 2 tab 05/06/19 10:28 05/11/19 21:01 Senokot Tab* PO 2 tab BEDTIME PRN Administration CONSTIPATION Vital Signs: Vital Signs Temp Pulse Resp BP Pulse Ox 98.2 F 92 14 118/70 96 05/12/19 05:10 05/12/19 05:10 05/12/19 14:48 05/12/19 05:10 05/12/19 05:10 Exam: GENERAL: no acute distress. alert and appropriate. looks better than yesterday LUNGS: clear bilaterally HEART: regular rate and rhythm ABDOMEN: + bowel sounds, soft, non-tender, non-distended EXTREMITIES: no pedal edema. no calf pain. [place] c/d/i. NEUROLOGIC: LE motor 5/5 bilaterally except pain limited testing of knees and hips. Sensation intact in legs and feet. Assessment/Plan: 63yo man s/p bilateral total knee replacements 1. Bilateral TKA: f/u with Dr. Ortiz. PT/OT. Added OxyContin for pain control. Oxycodone 15 mg PO Q4 PRN or Percocet Q4 PRN 2. Chronic low back pain: Soma at night. At home uses 4-6 percocet per day. 3. DVT prophylaxis: Eliquis 2.5mg bid 4. Nausea/vomiting: appears resolved on scopalomine patch. zofran prn. 5. Nicotine dependence (chewing tobacco): has nicotine gum and losenges prn but not using 6. Acute post-op anemia: Hemoglobin 8.2. 7. Peptic ulcer disease: continue protonix substitute for home omeprazole 8. Rheumatoid arthritis: prednisone short course for flare. Off NSAIDs while on Eliquis. 9. Advanced directives: full code. is hcp. 05/12/19 15:57
[2019-05-12] MEDS: Pantoprazole TAB * 40 MG TAB PO SCH (18:34)
[2019-05-12] MEDS: Carisoprodol TAB* 350 MG PO SCH (20:55)
[2019-05-13] MEDS: oxyCODONE TAB* 5 MG TAB PO PRN ×5 (01:25→18:00)
[2019-05-13] MEDS: oxyCODONE SR TAB(*) 20 MG TAB.SR PO SCH ×2 (08:42→21:07)
[2019-05-13] MEDS: predniSONE TAB* 20 MG PO SCH (08:42)
[2019-05-13] MEDS: Docusate CAP* 100 MG PO SCH ×2 (08:42→21:07)
[2019-05-13] MEDS: Vitamin THERAPEUTIC TAB PO SCH (08:42)
[2019-05-13] MEDS: Apixaban* 2.5 MG TAB PO SCH ×2 (08:42→21:07)
--- NOTE | 2019-05-13 17:22 | PN ---
Progress Note Date of Service: 05/13/19 Note: BILL BURRELL was visited. Therapy notes read and reviewed. Patient complains of ongoing pain but otherwise is doing ok. Walking is better Current Medications: Active Medications Generic Name Dose Route Start Last Admin Trade Name Freq PRN Reason Stop Dose Admin Acetaminophen 650 mg 05/06/19 10:28 Tylenol Tab* PO Q6H PRN FEVER > 101 Al Hydrox/Mg Hydrox/Simethicone 30 ml 05/06/19 10:28 Maalox Plus* PO Q6H PRN INDIGESTION Apixaban 2.5 mg 05/09/19 09:00 05/13/19 08:42 Eliquis* PO 2.5 mg BID RENAN Administration Bisacodyl 10 mg 05/06/19 10:28 Dulcolax Supp* [place] DAILY PRN CONSTIPATION Carisoprodol 350 mg 05/06/19 21:00 05/12/19 20:55 Soma Tab* PO 350 mg BEDTIME RENAN Administration Docusate Sodium 100 mg 05/06/19 21:00 05/13/19 08:42 Colace Cap* PO 100 mg BID RENAN Administration Magnesium Hydroxide 30 ml 05/06/19 10:28 05/10/19 18:30 Milk Of Magnesia Liq* PO 30 ml Q6H PRN Administration CONSTIPATION Methocarbamol 750 mg 05/07/19 10:12 Robaxin Tab* PO QID PRN muscle spasm or back pain Multivitamins 1 tab 05/07/19 09:00 05/13/19 08:42 Theragran Tab* PO 1 tab DAILY RENAN Administration Nicotine Polacrilex 2 mg 05/06/19 10:39 Nicotine Gum* PO Q2H PRN CRAVING Nicotine Polacrilex 2 mg 05/06/19 10:40 Nicotine Lozenge Mini MT Q2H PRN CRAVING Ondansetron HCl 4 mg 05/06/19 10:42 05/09/19 08:47 Zofran Odt Tab* SL 4 mg Q6H PRN Administration NAUSEA/VOMITING Ondansetron HCl 4 mg 05/06/19 12:14 Zofran Inj* IV Q6H PRN NAUSEA Oxycodone HCl 20 mg 05/09/19 21:00 05/13/19 08:42 Oxycontin(*) PO 20 mg Q12HR RENAN Administration Oxycodone HCl 15 mg 05/10/19 19:49 05/13/19 13:44 Roxycodone Tab* PO 15 mg Q4H PRN Administration severe breakthrough pain Oxycodone/Acetaminophen 2 tab 05/06/19 10:40 05/11/19 21:10 Percocet 5/325 Tab* PO 2 tab Q4H PRN Administration PAIN Oxycodone/Acetaminophen 1 tab 05/06/19 10:41 Percocet 5/325 Tab* PO Q4H PRN PAIN Pantoprazole Sodium 40 mg 05/06/19 18:00 05/12/19 18:34 Protonix Tab* PO 40 mg QPM RENAN Administration Pharmacy Profile Note 1 note 05/09/19 13:00 05/12/19 14:37 Scopolamine Patch Remove* PATCH OFF Not Given Q72H [facility] Polyethylene Glycol/Electrolytes 17 gm 05/06/19 10:39 05/09/19 12:14 Miralax* PO 17 gm DAILY PRN Administration CONSTIPATION Prednisone 20 mg 05/12/19 09:00 05/13/19 08:42 Deltasone Tab* PO 05/14/19 23:59 20 mg DAILY RENAN Administration Prednisone 10 mg 05/15/19 09:00 Deltasone Tab* PO 05/17/19 23:55 DAILY RENAN Scopolamine 1 patch 05/06/19 13:00 05/12/19 14:36 Transderm-Scop 1.5 Mg Patch* TRANSDERM 1 patch Q72H RENAN Administration Senna 2 tab 05/06/19 10:28 05/11/19 21:01 Senokot Tab* PO 2 tab BEDTIME PRN Administration CONSTIPATION Vital Signs: Vital Signs Temp Pulse Resp BP Pulse Ox 98.3 F 84 14 120/67 96 05/13/19 15:25 05/13/19 15:25 05/13/19 15:25 05/13/19 15:25 05/13/19 15:25 Exam: GENERAL: no acute distress. alert and appropriate. looks better than yesterday LUNGS: clear bilaterally HEART: regular rate and rhythm ABDOMEN: + bowel sounds, soft, non-tender, non-distended EXTREMITIES: no pedal edema. no calf pain. [place] c/d/i. NEUROLOGIC: LE motor 5/5 bilaterally except pain limited testing of knees and hips. Sensation intact in legs and feet. Assessment/Plan: 63yo man s/p bilateral total knee replacements 1. Bilateral TKA: f/u with Dr. Ortiz. PT/OT. Added OxyContin for pain control. Oxycodone 15 mg PO Q4 PRN or Percocet Q4 PRN 2. Chronic low back pain: Soma at night. At home uses 4-6 percocet per day. 3. DVT prophylaxis: Eliquis 2.5mg bid 4. Nausea/vomiting: appears resolved on scopalomine patch. zofran prn. 5. Nicotine dependence (chewing tobacco): has nicotine gum and losenges prn but not using 6. Acute post-op anemia: Hemoglobin 8.2. 7. Peptic ulcer disease: continue protonix substitute for home omeprazole 8. Rheumatoid arthritis: prednisone short course for flare. Off NSAIDs while on Eliquis. 9. Advanced directives: full code. is hcp. 05/13/19 17:22
[2019-05-13] MEDS: Pantoprazole TAB * 40 MG TAB PO SCH (18:00)
[2019-05-13] MEDS: Carisoprodol TAB* 350 MG PO SCH (21:07)
[2019-05-14] MEDS: oxyCODONE TAB* 5 MG TAB PO PRN ×4 (00:52→16:33)
[2019-05-14] MEDS: Docusate CAP* 100 MG PO SCH ×2 (08:48→20:25)
[2019-05-14] MEDS: oxyCODONE SR TAB(*) 20 MG TAB.SR PO SCH ×2 (08:48→20:26)
[2019-05-14] MEDS: Apixaban* 2.5 MG TAB PO SCH ×2 (08:48→20:25)
[2019-05-14] MEDS: predniSONE TAB* 20 MG PO SCH (08:49)
[2019-05-14] MEDS: Vitamin THERAPEUTIC TAB PO SCH (08:50)
[2019-05-14] MEDS: Pantoprazole TAB * 40 MG TAB PO SCH (17:42)
[2019-05-14] MEDS: Carisoprodol TAB* 350 MG PO SCH (20:25)
--- NOTE | 2019-05-14 21:32 | PN ---
Progress Note Date of Service: 05/14/19 Note: BILL BURRELL was visited. Therapy notes read and reviewed. He feels like he is doing okay, more confident Current Medications: Active Medications Generic Name Dose Route Start Last Admin Trade Name Freq PRN Reason Stop Dose Admin Acetaminophen 650 mg 05/06/19 10:28 Tylenol Tab* PO Q6H PRN FEVER > 101 Al Hydrox/Mg Hydrox/Simethicone 30 ml 05/06/19 10:28 Maalox Plus* PO Q6H PRN INDIGESTION Apixaban 2.5 mg 05/09/19 09:00 05/14/19 20:25 Eliquis* PO 2.5 mg BID RENAN Administration Bisacodyl 10 mg 05/06/19 10:28 Dulcolax Supp* [place] DAILY PRN CONSTIPATION Carisoprodol 350 mg 05/06/19 21:00 05/14/19 20:25 Soma Tab* PO 350 mg BEDTIME RENAN Administration Docusate Sodium 100 mg 05/06/19 21:00 05/14/19 20:25 Colace Cap* PO 100 mg BID RENAN Administration Magnesium Hydroxide 30 ml 05/06/19 10:28 05/10/19 18:30 Milk Of Magnesia Liq* PO 30 ml Q6H PRN Administration CONSTIPATION Methocarbamol 750 mg 05/07/19 10:12 Robaxin Tab* PO QID PRN muscle spasm or back pain Multivitamins 1 tab 05/07/19 09:00 05/14/19 08:50 Theragran Tab* PO 1 tab DAILY RENAN Administration Nicotine Polacrilex 2 mg 05/06/19 10:39 Nicotine Gum* PO Q2H PRN CRAVING Nicotine Polacrilex 2 mg 05/06/19 10:40 Nicotine Lozenge Mini MT Q2H PRN CRAVING Ondansetron HCl 4 mg 05/06/19 10:42 05/09/19 08:47 Zofran Odt Tab* SL 4 mg Q6H PRN Administration NAUSEA/VOMITING Ondansetron HCl 4 mg 05/06/19 12:14 Zofran Inj* IV Q6H PRN NAUSEA Oxycodone HCl 20 mg 05/09/19 21:00 05/14/19 20:26 Oxycontin(*) PO 20 mg Q12HR RENAN Administration Oxycodone HCl 15 mg 05/10/19 19:49 05/14/19 16:33 Roxycodone Tab* PO 15 mg Q4H PRN Administration severe breakthrough pain Oxycodone/Acetaminophen 2 tab 05/06/19 10:40 05/11/19 21:10 Percocet 5/325 Tab* PO 2 tab Q4H PRN Administration PAIN Oxycodone/Acetaminophen 1 tab 05/06/19 10:41 Percocet 5/325 Tab* PO Q4H PRN PAIN Pantoprazole Sodium 40 mg 05/06/19 18:00 05/14/19 17:42 Protonix Tab* PO 40 mg QPM RENAN Administration Pharmacy Profile Note 1 note 05/09/19 13:00 05/12/19 14:37 Scopolamine Patch Remove* PATCH OFF Not Given Q72H [facility] Polyethylene Glycol/Electrolytes 17 gm 05/06/19 10:39 05/09/19 12:14 Miralax* PO 17 gm DAILY PRN Administration CONSTIPATION Prednisone 20 mg 05/12/19 09:00 05/14/19 08:49 Deltasone Tab* PO 05/14/19 23:59 20 mg DAILY RENAN Administration Prednisone 10 mg 05/15/19 09:00 Deltasone Tab* PO 05/17/19 23:55 DAILY RENAN Scopolamine 1 patch 05/06/19 13:00 05/12/19 14:36 Transderm-Scop 1.5 Mg Patch* TRANSDERM 1 patch Q72H [facility] Administration Senna 2 tab 05/06/19 10:28 05/11/19 21:01 Senokot Tab* PO 2 tab BEDTIME PRN Administration CONSTIPATION Vital Signs: Vital Signs Temp Pulse Resp BP Pulse Ox 98.2 F 89 16 138/72 97 05/14/19 15:55 05/14/19 15:55 05/14/19 20:26 05/14/19 15:55 05/14/19 15:55 Exam: GENERAL: no acute distress. alert and appropriate. looks better than yesterday LUNGS: clear bilaterally HEART: regular rate and rhythm ABDOMEN: + bowel sounds, soft, non-tender, non-distended EXTREMITIES: no pedal edema. no calf pain. [place] c/d/i. NEUROLOGIC: LE motor 5/5 bilaterally except pain limited testing of knees and hips. Sensation intact in legs and feet. Assessment/Plan: 63yo man s/p bilateral total knee replacements 1. Bilateral TKA: f/u with Dr. Ortiz. PT/OT. Added OxyContin for pain control. Oxycodone 15 mg PO Q4 PRN or Percocet Q4 PRN 2. Chronic low back pain: Soma at night. At home uses 4-6 percocet per day. 3. DVT prophylaxis: Eliquis 2.5mg bid 4. Nausea/vomiting: appears resolved on scopalomine patch. zofran prn. 5. Nicotine dependence (chewing tobacco): has nicotine gum and losenges prn but not using 6. Acute post-op anemia: Hemoglobin 8.2. 7. Peptic ulcer disease: continue protonix substitute for home omeprazole 8. Rheumatoid arthritis: prednisone short course for flare. Off NSAIDs while on Eliquis. 9. Advanced directives: full code. is hcp. 05/14/19 21:33
[2019-05-15] MEDS: oxyCODONE TAB* 5 MG TAB PO PRN ×4 (00:35→16:28)
[2019-05-15] MEDS: predniSONE TAB* 10 MG PO SCH (08:38)
[2019-05-15] MEDS: Apixaban* 2.5 MG TAB PO SCH ×2 (08:38→20:25)
[2019-05-15] MEDS: Vitamin THERAPEUTIC TAB PO SCH (08:38)
[2019-05-15] MEDS: Docusate CAP* 100 MG PO SCH ×2 (08:39→20:25)
[2019-05-15] MEDS: oxyCODONE SR TAB(*) 20 MG TAB.SR PO SCH ×2 (08:39→20:25)
--- NOTE | 2019-05-15 12:33 | PN ---
Progress Note Date of Service: 05/15/19 Note: BILL BURRELL was visited. Nursing notes read and reviewed. No complaints. Knees look great Current Medications: Active Medications Generic Name Dose Route Start Last Admin Trade Name Freq PRN Reason Stop Dose Admin Acetaminophen 650 mg 05/06/19 10:28 Tylenol Tab* PO Q6H PRN FEVER > 101 Al Hydrox/Mg Hydrox/Simethicone 30 ml 05/06/19 10:28 Maalox Plus* PO Q6H PRN INDIGESTION Apixaban 2.5 mg 05/09/19 09:00 05/15/19 08:38 Eliquis* PO 2.5 mg BID RENAN Administration Bisacodyl 10 mg 05/06/19 10:28 Dulcolax Supp* [place] DAILY PRN CONSTIPATION Carisoprodol 350 mg 05/06/19 21:00 05/14/19 20:25 Soma Tab* PO 350 mg BEDTIME RENAN Administration Docusate Sodium 100 mg 05/06/19 21:00 05/15/19 08:39 Colace Cap* PO 100 mg BID RENAN Administration Magnesium Hydroxide 30 ml 05/06/19 10:28 05/10/19 18:30 Milk Of Magnesia Liq* PO 30 ml Q6H PRN Administration CONSTIPATION Methocarbamol 750 mg 05/07/19 10:12 Robaxin Tab* PO QID PRN muscle spasm or back pain Multivitamins 1 tab 05/07/19 09:00 05/15/19 08:38 Theragran Tab* PO 1 tab DAILY RENAN Administration Nicotine Polacrilex 2 mg 05/06/19 10:39 Nicotine Gum* PO Q2H PRN CRAVING Nicotine Polacrilex 2 mg 05/06/19 10:40 Nicotine Lozenge Mini MT Q2H PRN CRAVING Ondansetron HCl 4 mg 05/06/19 10:42 05/09/19 08:47 Zofran Odt Tab* SL 4 mg Q6H PRN Administration NAUSEA/VOMITING Ondansetron HCl 4 mg 05/06/19 12:14 Zofran Inj* IV Q6H PRN NAUSEA Oxycodone HCl 20 mg 05/09/19 21:00 05/15/19 08:39 Oxycontin(*) PO 20 mg Q12HR RENAN Administration Oxycodone HCl 15 mg 05/10/19 19:49 05/15/19 12:28 Roxycodone Tab* PO 15 mg Q4H PRN Administration severe breakthrough pain Oxycodone/Acetaminophen 2 tab 05/06/19 10:40 05/11/19 21:10 Percocet 5/325 Tab* PO 2 tab Q4H PRN Administration PAIN Oxycodone/Acetaminophen 1 tab 05/06/19 10:41 Percocet 5/325 Tab* PO Q4H PRN PAIN Pantoprazole Sodium 40 mg 05/06/19 18:00 05/14/19 17:42 Protonix Tab* PO 40 mg QPM RENAN Administration Pharmacy Profile Note 1 note 05/09/19 13:00 05/12/19 14:37 Scopolamine Patch Remove* PATCH OFF Not Given Q72H [facility] Polyethylene Glycol/Electrolytes 17 gm 05/06/19 10:39 05/09/19 12:14 Miralax* PO 17 gm DAILY PRN Administration CONSTIPATION Prednisone 10 mg 05/15/19 09:00 05/15/19 08:38 Deltasone Tab* PO 05/17/19 23:55 10 mg DAILY RENAN Administration Scopolamine 1 patch 05/06/19 13:00 05/12/19 14:36 Transderm-Scop 1.5 Mg Patch* TRANSDERM 1 patch Q72H [facility] Administration Senna 2 tab 05/06/19 10:28 05/11/19 21:01 Senokot Tab* PO 2 tab BEDTIME PRN Administration CONSTIPATION Vital Signs: Vital Signs Temp Pulse Resp BP Pulse Ox 98.0 F 81 16 125/69 97 05/15/19 04:46 05/15/19 04:46 05/15/19 12:28 05/15/19 04:46 05/15/19 04:46 Exam: GENERAL: no acute distress. alert and appropriate. looks better than yesterday LUNGS: clear bilaterally HEART: regular rate and rhythm ABDOMEN: + bowel sounds, soft, non-tender, non-distended EXTREMITIES: no pedal edema. no calf pain. Ayleen c/d/i. NEUROLOGIC: LE motor 5/5 bilaterally except pain limited testing of knees and hips. Sensation intact in legs and feet. Assessment/Plan: 63yo man s/p bilateral total knee replacements 1. Bilateral TKA: f/u with Dr. Ortiz. PT/OT. Added OxyContin for pain control. Oxycodone 15 mg PO Q4 PRN or Percocet Q4 PRN 2. Chronic low back pain: Soma at night. At home uses 4-6 percocet per day. 3. DVT prophylaxis: Eliquis 2.5mg bid 4. Nausea/vomiting: appears resolved on scopalomine patch. zofran prn. 5. Nicotine dependence (chewing tobacco): has nicotine gum and losenges prn but not using 6. Acute post-op anemia: Hemoglobin 8.2. 7. Peptic ulcer disease: continue protonix substitute for home omeprazole 8. Rheumatoid arthritis: prednisone short course for flare. Off NSAIDs while on Eliquis. 9. Advanced directives: full code. is hcp. 05/15/19 12:33
[2019-05-15] MEDS: Pantoprazole TAB * 40 MG TAB PO SCH (19:01)
[2019-05-15] MEDS: Carisoprodol TAB* 350 MG PO SCH (20:25)
[2019-05-16] MEDS: oxyCODONE TAB* 5 MG TAB PO PRN ×6 (00:25→20:20)
[2019-05-16] MEDS: Docusate CAP* 100 MG PO SCH ×2 (09:07→20:21)
[2019-05-16] MEDS: oxyCODONE SR TAB(*) 20 MG TAB.SR PO SCH (09:08)
[2019-05-16] MEDS: Apixaban* 2.5 MG TAB PO SCH ×2 (09:08→22:23)
[2019-05-16] MEDS: predniSONE TAB* 10 MG PO SCH (09:08)
[2019-05-16] MEDS: Vitamin THERAPEUTIC TAB PO SCH (09:09)
--- NOTE | 2019-05-16 17:25 | PN ---
Progress Note Date of Service: 05/16/19 Note: BILL BURRELL was visited. Therapy notes read and reviewed. He feels like he is doing okay today, in good spirits Current Medications: Active Medications Generic Name Dose Route Start Last Admin Trade Name Freq PRN Reason Stop Dose Admin Acetaminophen 650 mg 05/06/19 10:28 Tylenol Tab* PO Q6H PRN FEVER > 101 Al Hydrox/Mg Hydrox/Simethicone 30 ml 05/06/19 10:28 Maalox Plus* PO Q6H PRN INDIGESTION Apixaban 2.5 mg 05/09/19 09:00 05/16/19 09:08 Eliquis* PO 2.5 mg BID RENAN Administration Bisacodyl 10 mg 05/06/19 10:28 Dulcolax Supp* [place] DAILY PRN CONSTIPATION Carisoprodol 350 mg 05/06/19 21:00 05/15/19 20:25 Soma Tab* PO 350 mg BEDTIME RENAN Administration Docusate Sodium 100 mg 05/06/19 21:00 05/16/19 09:07 Colace Cap* PO 100 mg BID RENAN Administration Magnesium Hydroxide 30 ml 05/06/19 10:28 05/10/19 18:30 Milk Of Magnesia Liq* PO 30 ml Q6H PRN Administration CONSTIPATION Methocarbamol 750 mg 05/07/19 10:12 Robaxin Tab* PO QID PRN muscle spasm or back pain Multivitamins 1 tab 05/07/19 09:00 05/16/19 09:09 Theragran Tab* PO 1 tab DAILY RENAN Administration Nicotine Polacrilex 2 mg 05/06/19 10:39 Nicotine Gum* PO Q2H PRN CRAVING Nicotine Polacrilex 2 mg 05/06/19 10:40 Nicotine Lozenge Mini MT Q2H PRN CRAVING Ondansetron HCl 4 mg 05/06/19 10:42 05/09/19 08:47 Zofran Odt Tab* SL 4 mg Q6H PRN Administration NAUSEA/VOMITING Ondansetron HCl 4 mg 05/06/19 12:14 Zofran Inj* IV Q6H PRN NAUSEA Oxycodone HCl 20 mg 05/09/19 21:00 05/16/19 09:08 Oxycontin(*) PO 20 mg Q12HR RENAN Administration Oxycodone HCl 15 mg 05/10/19 19:49 05/16/19 16:18 Roxycodone Tab* PO 15 mg Q4H PRN Administration severe breakthrough pain Oxycodone/Acetaminophen 2 tab 05/06/19 10:40 05/11/19 21:10 Percocet 5/325 Tab* PO 2 tab Q4H PRN Administration PAIN Oxycodone/Acetaminophen 1 tab 05/06/19 10:41 Percocet 5/325 Tab* PO Q4H PRN PAIN Pantoprazole Sodium 40 mg 05/06/19 18:00 05/15/19 19:01 Protonix Tab* PO 40 mg QPM RENAN Administration Polyethylene Glycol/Electrolytes 17 gm 05/06/19 10:39 05/09/19 12:14 Miralax* PO 17 gm DAILY PRN Administration CONSTIPATION Prednisone 10 mg 05/15/19 09:00 05/16/19 09:08 Deltasone Tab* PO 05/17/19 23:55 10 mg DAILY RENAN Administration Senna 2 tab 05/06/19 10:28 05/11/19 21:01 Senokot Tab* PO 2 tab BEDTIME PRN Administration CONSTIPATION Vital Signs: Vital Signs Temp Pulse Resp BP Pulse Ox 98.5 F 87 20 129/75 98 05/16/19 17:18 05/16/19 17:18 05/16/19 17:18 05/16/19 17:18 05/16/19 17:18 Exam: GENERAL: no acute distress. alert and appropriate. looks better than yesterday LUNGS: clear bilaterally HEART: regular rate and rhythm ABDOMEN: + bowel sounds, soft, non-tender, non-distended EXTREMITIES: no pedal edema. no calf pain. Ayleen c/d/i. NEUROLOGIC: LE motor 5/5 bilaterally except pain limited testing of knees and hips. Sensation intact in legs and feet. Assessment/Plan: 63yo man s/p bilateral total knee replacements 1. Bilateral TKA: f/u with Dr. Ortiz. PT/OT. Oxycodone 15 mg PO Q4 PRN or Percocet Q4 PRN, start tapering OxyContin 2. Chronic low back pain: Soma at night. At home uses 4-6 percocet per day. 3. DVT prophylaxis: Eliquis 2.5mg bid 4. Nausea/vomiting: appears resolved on scopalomine patch. zofran prn. 5. Nicotine dependence (chewing tobacco): has nicotine gum and lozenges prn but not using 6. Acute post-op anemia: Hemoglobin 8.2. 7. Peptic ulcer disease: continue protonix substitute for home omeprazole 8. Rheumatoid arthritis: prednisone short course for flare. Off NSAIDs while on Eliquis. 9. Advanced directives: full code. is hcp. 05/16/19 17:26 05/16/19 17:28
[2019-05-16] MEDS: Pantoprazole TAB * 40 MG TAB PO SCH (18:33)
[2019-05-16] MEDS: Carisoprodol TAB* 350 MG PO SCH (20:21)
[2019-05-16] MEDS: oxyCODONE SR TAB(*) 10 MG TAB.SR PO SCH (22:23)
[2019-05-17] MEDS: oxyCODONE TAB* 5 MG TAB PO PRN ×6 (01:51→22:33)
[2019-05-17] MEDS: Apixaban* 2.5 MG TAB PO SCH ×2 (09:14→20:57)
[2019-05-17] MEDS: Vitamin THERAPEUTIC TAB PO SCH (09:14)
[2019-05-17] MEDS: Docusate CAP* 100 MG PO SCH ×2 (09:14→20:57)
[2019-05-17] MEDS: predniSONE TAB* 10 MG PO SCH (09:14)
[2019-05-17] MEDS: oxyCODONE SR TAB(*) 10 MG TAB.SR PO SCH ×2 (09:14→20:58)
--- NOTE | 2019-05-17 12:31 | PMRUTEAM ---
PMRU: Team Meeting Current Status: Nursing: Current Status Skin Deviations [Bilateral Abrasion Elbow] Skin Deviations [Bilateral Incision Knee] Skin Deviation Description [ reddened Bilateral Elbow] Skin Deviation Description [ cryo units in place Bilateral Knee] Physical Therapy: Current Status Bed Mobility Assistance Min Assist Transfer Mobility Assistance Supervision,Contact Guard Assist Transfer/Bed Mobility Rolling Walker Recommended Devices Ambulation Assistance Contact Guard Assist Ambulation Assistive Devices Rolling Walker Number of Feet Patient 1000x3 Ambulated Stairs Assistance Supervision Stairs Recommended Devices Two Rails Number of Stairs 2x2 Curb Supervision Curb Assistive Devices Rolling Walker Objective Comments step up onto 4" step in // bars with step to pattern Occupational Therapy: Current Status Upper Body Dressing Supervision Lower Body Dressing Independent Bathing Supervision Toileting Ind with Adaptive Equip Toilet Transfer Ind with Adaptive Equip Shower Transfer Supervision Eating Independent Rec Therapy: Current Status Summary of Assessment and Recreation Therapy assessment complete and pt. is Clinical Impression aware of services. Pt. has been engaged in leisure visits and in pet therapy while on the unit. Pt. has been pleasant and cooperative. Treatment Goals Pt. will continue to engage in leisure activities while on the unit. Treatment Plan Provide recreation therapy and encourage involvement. Social Work: Current Status Discharge Plan return home with home care svs and family support Potential for Family Training TBD Anticipated Discharge Home Destination Discharge With Lifetime Care and family support Nutrition: Current Status Monitoring pt s/p bilat TKA 05/04/19. Regular diet is appropriate. Overall appetite has improved, as he is now eating >80% of meals (and often 100%). Labs unremarkable. Bowel pattern appears regulated; last BM 05/15. Skin is intact w/low risk for breakdown. Pt denies concerns or any food/beverage/snack needs at this time. Appears to be meeting goals as outlined below. Goals: Physical Therapy: Initial Goals Bed Mobility Assistance Independent Transfer Mobility Assistance Independent Transfer/Bed Mobility Rolling Walker Recommended Devices Ambulation Independent Ambulation Recommended Devices Rolling Walker Ambulation Distance 200 Stairs Assistance Independent Stair Recommended Devices Two Rails Number of Stairs 12 Physical Therapy: Updated Goals Transfer/Bed Mobility Rolling Walker Recommended Devices Occupational Therapy: Initial Goals Goals to be Completed in (Days 7-10 ) Upper Body Bathing Routine Supervision/Set Up Lower Body Bathing Routine Supervision/Set Up Upper Body Dressing Routine Independent Lower Body Dressing Routine Modified Independent with Toilet Hygeine and Clothing Modified Independent with Management Routine Toilet Transfer Routine Modified Independent with Step-In Shower Transfer Supervision/Set Up Routine Functional Transfers for ADL Modified Independent with Grooming Routine Independent Feeding Routine Independent Light Housekeeping Tasks Minimal Contact Assist Nutrition: Goals Intervention Goals 1. adequate intake to support hydration, stable wt, and lean body mass 2. maintain serum electrolytes WNL 3. regulation of bowel pattern; no c/o constipation (or diarrhea) Social Work: Goals Discharge Plan return home with home care svs and family support Potential for Family Training TBD Anticipated Discharge Home Destination Discharge With Lifetime Care and family support Care Plan: Care Plan ADL's - Improve/Maintain Start: 05/09/19 11:20 Freq: DAILY Status: Active Target: Protocol: Activity Type Activity Date Activity User E-Sign Co-Sign Detail Recorded Client Recorded Date Recorded By Document 05/16/19 15:19 [id number] 05/16/19 15:19 [id number] 05/16/19 15:19 PMRU Outcome: ADL's/ADL Transfers Orders/Interventions Occupational Therapy Evaluation & Treatment Communication Tool in Patient Room Device Yes: FWW Patient to receive OT 5x/wk for 60-120 Therex min/day Self Care Management Group Therapy UE/LE ADL's with Assist Yes: mod I ADL Transfers with Assist Yes: mod I Toileting: Transfers,Clothing Management Yes: mod I ,Hygeine w/Assist Light Kitchen/Laundry w/Assist Yes: mod I Outcome/Goals Met Pt is progressing toward goals. Pt is willingly completing each therapeutic activity given to him. Pt is motivated to get better and is happy with his progress. DVT Prophylaxis- Improve/Maintain Start: 05/06/19 15:17 Freq: QSHIFT Status: Active Target: Protocol: Activity Type Activity Date Activity User E-Sign Co-Sign Detail Recorded Client Recorded Date Recorded By Document 05/17/19 00:29 [id number] 05/17/19 00:30 [id number] 05/17/19 00:29 PMRU Outcome: DVT Prophylaxis Outcome/Goals Remains Free of DVT Complies with DVT Prophylaxis /Treatment Demonstrates Knowledge of DVT Prevention/ Treatment TEDS Stockings on Every AM, Off at HS Progression Toward Outcome/Goals Progressing Discharge Planning - Improve/Maintain Start: 05/06/19 15:17 Freq: DAILY Status: Active Target: Protocol: Activity Type Activity Date Activity User E-Sign Co-Sign Detail Recorded Client Recorded Date Recorded By Document 05/17/19 00:29 [id number] 05/17/19 00:30 [id number] 05/17/19 00:29 PMRU Outcome: Discharge Planning Update Patient Family No Outcome/Goals Demonstrates Understanding of Discharge Plan Progression Toward Outcome/Goals Progressing Education-Improve/Maintain Start: 05/06/19 15:17 Freq: QSHIFT Status: Active Target: Protocol: Activity Type Activity Date Activity User E-Sign Co-Sign Detail Recorded Client Recorded Date Recorded By Document 05/17/19 00:29 [id number] 05/17/19 00:30 [id number] 05/17/19 00:29 PMRU Outcome: Education Outcome/Goals Demonstrates Skills Encourage Questions Progression Toward Outcome/Goals Progressing /GI-Improve/Maintain Start: 05/06/19 15:17 Freq: QSHIFT Status: Active Target: Protocol: Activity Type Activity Date Activity User E-Sign Co-Sign Detail Recorded Client Recorded Date Recorded By Document 05/17/19 00:29 [id number] 05/17/19 00:30 [id number] 05/17/19 00:29 PMRU Outcome: Genitourinary/ Gastrointestinal Genitourinary- Outcome/Goals Maintain/ Achieve Urinary Continence Remain Free of Hospital- Acquired UTI Gastrointestinal-Outcome/Goals Maintain/ Achieve Bowel Regularity in Accordance with Pt's Baseline Prevent Constipation Laxatives as Ordered Progression Toward Outcome/Goals - Progressing Progression Toward Outcome/Goals - GI Progressing Medication Administration Start: 05/06/19 15:17 Freq: QSHIFT Status: Active Target: Protocol: Activity Type Activity Date Activity User E-Sign Co-Sign Detail Recorded Client Recorded Date Recorded By Document 05/17/19 00:29 [id number] 05/17/19 00:30 [id number] 05/17/19 00:29 PMRU Outcome: Medication Administration Assess Patient Knowledge/Teach Med Yes Education for all Meds Outcome/Goals Patient Independent with Medication Administration at Home Demonstrates Understanding Progression Towards Outcome/Goals Progressing Is Patient Going Home on Lovenox? No Pain/Comfort- Improve/Maintain Start: 05/06/19 15:17 Freq: QSHIFT Status: Active Target: Protocol: Activity Type Activity Date Activity User E-Sign Co-Sign Detail Recorded Client Recorded Date Recorded By Document 05/17/19 00:29 [id number] 05/17/19 00:30 [id number] 05/17/19 00:29 PMRU Outcome: Pain/Comfort Outcome/Goals Demonstrates Knowledge and Use of Available Comfort Measures Achieves Acceptable Comfort/Pain Level as Determined by Patient/Condit Maintain Comfort Level Allowing Patient to Fully Participate in Rehab Progression Toward Outcome/Goals Progressing Outcome/Goals Met Comment pt resting - cryo units in place Skin- Improve/Maintain Start: 05/06/19 15:17 Freq: QSHIFT Status: Active Target: Protocol: Activity Type Activity Date Activity User E-Sign Co-Sign Detail Recorded Client Recorded Date Recorded By Document 05/17/19 00:29 [id number] 05/17/19 00:30 [id number] 05/17/19 00:29 PMRU Outcome: Skin Skin Risk Level Low Dressing Change Comments incisions SATINDER Outcome/Goals Surgical Incisions Healing Progression Toward Outcome/Goals Progressing Medicine Note: Length of Stay: 2 days Anticipated Discharge Destination: Home Tentative Discharge Date: 05/19/19 Discharged to: Home
[2019-05-17] MEDS: Magnesium Hydroxide LIQ* 30 ML UDC PO PRN (14:45)
--- NOTE | 2019-05-17 18:26 | PN ---
Progress Note Date of Service: 05/17/19 Note: BILL BURRELL was visited. Therapy notes read and reviewed. He was discussed ininterdisciplinary team rounds. He has made gains. ROM of knees improving. Current Medications: Active Medications Generic Name Dose Route Start Last Admin Trade Name Freq PRN Reason Stop Dose Admin Acetaminophen 650 mg 05/06/19 10:28 Tylenol Tab* PO Q6H PRN FEVER > 101 Al Hydrox/Mg Hydrox/Simethicone 30 ml 05/06/19 10:28 Maalox Plus* PO Q6H PRN INDIGESTION Apixaban 2.5 mg 05/09/19 09:00 05/17/19 09:14 Eliquis* PO 2.5 mg BID RENAN Administration Bisacodyl 10 mg 05/06/19 10:28 Dulcolax Supp* [place] DAILY PRN CONSTIPATION Carisoprodol 350 mg 05/06/19 21:00 05/16/19 20:21 Soma Tab* PO 350 mg BEDTIME RENAN Administration Docusate Sodium 100 mg 05/06/19 21:00 05/17/19 09:14 Colace Cap* PO 100 mg BID RENAN Administration Magnesium Hydroxide 30 ml 05/06/19 10:28 05/17/19 14:45 Milk Of Magnesia Liq* PO 30 ml Q6H PRN Administration CONSTIPATION Methocarbamol 750 mg 05/07/19 10:12 Robaxin Tab* PO QID PRN muscle spasm or back pain Multivitamins 1 tab 05/07/19 09:00 05/17/19 09:14 Theragran Tab* PO 1 tab DAILY RENAN Administration Nicotine Polacrilex 2 mg 05/06/19 10:39 Nicotine Gum* PO Q2H PRN CRAVING Nicotine Polacrilex 2 mg 05/06/19 10:40 Nicotine Lozenge Mini MT Q2H PRN CRAVING Ondansetron HCl 4 mg 05/06/19 10:42 05/09/19 08:47 Zofran Odt Tab* SL 4 mg Q6H PRN Administration NAUSEA/VOMITING Ondansetron HCl 4 mg 05/06/19 12:14 Zofran Inj* IV Q6H PRN NAUSEA Oxycodone HCl 15 mg 05/10/19 19:49 05/17/19 14:37 Roxycodone Tab* PO 15 mg Q4H PRN Administration severe breakthrough pain Oxycodone HCl 10 mg 05/16/19 21:00 05/17/19 09:14 Oxycontin(*) PO 10 mg Q12HR RENAN Administration Oxycodone/Acetaminophen 2 tab 05/06/19 10:40 05/11/19 21:10 Percocet 5/325 Tab* PO 2 tab Q4H PRN Administration PAIN Oxycodone/Acetaminophen 1 tab 05/06/19 10:41 Percocet 5/325 Tab* PO Q4H PRN PAIN Pantoprazole Sodium 40 mg 05/06/19 18:00 05/16/19 18:33 Protonix Tab* PO 40 mg QPM RENAN Administration Polyethylene Glycol/Electrolytes 17 gm 05/06/19 10:39 05/09/19 12:14 Miralax* PO 17 gm DAILY PRN Administration CONSTIPATION Prednisone 10 mg 05/15/19 09:00 05/17/19 09:14 Deltasone Tab* PO 05/17/19 23:55 10 mg DAILY RENAN Administration Senna 2 tab 05/06/19 10:28 05/11/19 21:01 Senokot Tab* PO 2 tab BEDTIME PRN Administration CONSTIPATION Vital Signs: Vital Signs Temp Pulse Resp BP Pulse Ox 98.2 F 97 20 146/77 99 05/17/19 15:52 05/17/19 15:52 05/17/19 16:37 05/17/19 15:52 05/17/19 15:52 Exam: GENERAL: no acute distress. alert and appropriate. looks better than yesterday LUNGS: clear bilaterally HEART: regular rate and rhythm ABDOMEN: + bowel sounds, soft, non-tender, non-distended EXTREMITIES: no pedal edema. no calf pain. [place] c/d/i. NEUROLOGIC: LE motor 5/5 bilaterally except pain limited testing of knees and hips. Sensation intact in legs and feet. Assessment/Plan: 63yo man s/p bilateral total knee replacements 1. Bilateral TKA: f/u with Dr. Ortiz. PT/OT. Oxycodone 15 mg PO Q4 PRN or Percocet 1-2 Q4 PRN, tapering OxyContin 2. Chronic low back pain: Soma at night. At home uses 4-6 percocet per day. 3. DVT prophylaxis: Eliquis 2.5mg bid 4. Nausea/vomiting: appears resolved on scopalomine patch. zofran prn. 5. Nicotine dependence (chewing tobacco): has nicotine gum and lozenges prn but not using 6. Acute post-op anemia: Hemoglobin 8.2. 7. Peptic ulcer disease: continue protonix substitute for home omeprazole 8. Rheumatoid arthritis: prednisone short course for flare. Off NSAIDs while on Eliquis. 9. Advanced directives: full code. is hcp. 05/17/19 18:26
[2019-05-17] MEDS: Pantoprazole TAB * 40 MG TAB PO SCH (18:42)
[2019-05-17] MEDS: Senna TAB PO PRN (20:57)
[2019-05-17] MEDS: Carisoprodol TAB* 350 MG PO SCH (20:58)
[2019-05-18] MEDS: oxyCODONE TAB* 5 MG TAB PO PRN ×5 (03:15→20:48)
[2019-05-18 06:25] LABS: ABS Basophils 0.1 10^3/ul (0-0.2); ABS Eosinophils 0.5 10^3/ul (0-0.6); ABS Lymphocytes 2.2 10^3/ul (1.0-4.8); ABS Monocytes 1.1 10^3/ul (0-0.8); ABS Neutrophils 6.4 10^3/ul (1.5-7.7); Eosinophil % 4.9 %; Hematocrit 34 % (42-52); Hemoglobin 11.3 g/dL (14.0-18.0); Lymphocyte % 21.1 %; Mean Corpuscular HGB Conc 33 g/dL (31-36); Mean Corpuscular Hemoglobin 31 pg (27-31); Mean Corpuscular Volume 95 fL (80-94); Mean Platelet Volume 6.4 fL (7.4-10.4); Platelet Count 621 10^3/uL (150-450); Red Blood Count 3.59 10^6 /uL (4.18-5.48); Red Cell Distribution Width 14 % (10-15); White Blood Count 10.4 10^3/uL (3.5-10.8)
[2019-05-18 06:43] LABS: Albumin 3.9 g/dL (3.2-5.2); Albumin/Globulin Ratio 1.4 (1-3); BUN/Creatinine Ratio 22.2 (8-20); Calcium 9.5 mg/dL (8.6-10.3); EGFR African American 116.8 (>60); EGFR Non-African American 96.6 (>60); Globulin 2.8 g/dL (2-4); Potassium 4.1 mmol/L (3.5-5.0); Total Bilirubin 0.6 mg/dL (0.2-1.0); Total Protein 6.7 g/dL (6.4-8.9)
[2019-05-18] MEDS: Apixaban* 2.5 MG TAB PO SCH ×2 (08:50→20:47)
[2019-05-18] MEDS: Docusate CAP* 100 MG PO SCH ×2 (08:50→20:47)
[2019-05-18] MEDS: oxyCODONE SR TAB(*) 10 MG TAB.SR PO SCH (08:50)
[2019-05-18] MEDS: Vitamin THERAPEUTIC TAB PO SCH (08:51)
[2019-05-18] MEDS: Pantoprazole TAB * 40 MG TAB PO SCH (17:32)
--- NOTE | 2019-05-18 18:00 | PN ---
Progress Note Date of Service: 05/18/19 Note: BILL BURRELL was visited. Therapy notes read and reviewed. He complains of left ankle pain. He has some blood that has drifted down from his knee and is below his ankle causing soreness when he steps. Current Medications: Active Medications Generic Name Dose Route Start Last Admin Trade Name Freq PRN Reason Stop Dose Admin Acetaminophen 650 mg 05/06/19 10:28 Tylenol Tab* PO Q6H PRN FEVER > 101 Al Hydrox/Mg Hydrox/Simethicone 30 ml 05/06/19 10:28 Maalox Plus* PO Q6H PRN INDIGESTION Apixaban 2.5 mg 05/09/19 09:00 05/18/19 08:50 Eliquis* PO 2.5 mg BID RENAN Administration Bisacodyl 10 mg 05/06/19 10:28 Dulcolax Supp* [place] DAILY PRN CONSTIPATION Carisoprodol 350 mg 05/06/19 21:00 05/17/19 20:58 Soma Tab* PO 350 mg BEDTIME RENAN Administration Docusate Sodium 100 mg 05/06/19 21:00 05/18/19 08:50 Colace Cap* PO 100 mg BID RENAN Administration Magnesium Hydroxide 30 ml 05/06/19 10:28 05/17/19 14:45 Milk Of Magnesia Liq* PO 30 ml Q6H PRN Administration CONSTIPATION Methocarbamol 750 mg 05/07/19 10:12 Robaxin Tab* PO QID PRN muscle spasm or back pain Multivitamins 1 tab 05/07/19 09:00 05/18/19 08:51 Theragran Tab* PO 1 tab DAILY RENAN Administration Nicotine Polacrilex 2 mg 05/06/19 10:39 Nicotine Gum* PO Q2H PRN CRAVING Nicotine Polacrilex 2 mg 05/06/19 10:40 Nicotine Lozenge Mini MT Q2H PRN CRAVING Ondansetron HCl 4 mg 05/06/19 10:42 05/09/19 08:47 Zofran Odt Tab* SL 4 mg Q6H PRN Administration NAUSEA/VOMITING Ondansetron HCl 4 mg 05/06/19 12:14 Zofran Inj* IV Q6H PRN NAUSEA Oxycodone HCl 15 mg 05/10/19 19:49 05/18/19 16:52 Roxycodone Tab* PO 15 mg Q4H PRN Administration severe breakthrough pain Oxycodone HCl 10 mg 05/16/19 21:00 05/18/19 08:50 Oxycontin(*) PO 10 mg Q12HR RENAN Administration Oxycodone/Acetaminophen 2 tab 05/06/19 10:40 05/11/19 21:10 Percocet 5/325 Tab* PO 2 tab Q4H PRN Administration PAIN Oxycodone/Acetaminophen 1 tab 05/06/19 10:41 Percocet 5/325 Tab* PO Q4H PRN PAIN Pantoprazole Sodium 40 mg 05/06/19 18:00 05/18/19 17:32 Protonix Tab* PO 40 mg QPM RENAN Administration Polyethylene Glycol/Electrolytes 17 gm 05/06/19 10:39 05/09/19 12:14 Miralax* PO 17 gm DAILY PRN Administration CONSTIPATION Senna 2 tab 05/06/19 10:28 05/17/19 20:57 Senokot Tab* PO 2 tab BEDTIME PRN Administration CONSTIPATION Vital Signs: Vital Signs Temp Pulse Resp BP Pulse Ox 98.7 F 99 16 132/70 100 05/18/19 16:10 05/18/19 16:10 05/18/19 16:53 05/18/19 16:10 05/18/19 16:11 Lab Results: Laboratory Results - last 24 hr 05/18/19 05/18/19 06:12 06:12 WBC 10.4 RBC 3.59 L Hgb 11.3 L Hct 34 L MCV 95 H MCH 31 MCHC 33 RDW 14 Plt Count 621 H D MPV 6.4 L Neut % (Auto) 61.9 Lymph % (Auto) 21.1 [place] % (Auto) 10.7 Eos % (Auto) 4.9 Baso % (Auto) 1.4 Absolute Neuts (auto) 6.4 Absolute Lymphs (auto) 2.2 Absolute Monos (auto) 1.1 H Absolute Eos (auto) 0.5 Absolute Basos (auto) 0.1 Absolute Nucleated RBC 0.0 Nucleated RBC % 0.0 Sodium 136 Potassium 4.1 Chloride 99 L Carbon Dioxide 33 H Anion Gap 4 BUN 18 Creatinine 0.81 Est GFR ( Amer) 116.8 Est GFR (Non-Af Amer) 96.6 BUN/Creatinine Ratio 22.2 H Glucose 106 H Calcium 9.5 Total Bilirubin 0.60 AST 18 ALT 13 Alkaline Phosphatase 73 Total Protein 6.7 Albumin 3.9 Globulin 2.8 Albumin/Globulin Ratio 1.4 Exam: GENERAL: no acute distress. alert and appropriate. looks better than yesterday LUNGS: clear bilaterally HEART: regular rate and rhythm ABDOMEN: + bowel sounds, soft, non-tender, non-distended EXTREMITIES: no pedal edema. no calf pain. Herman c/d/i. NEUROLOGIC: LE motor 5/5 bilaterally except pain limited testing of knees and hips. Sensation intact in legs and feet. Assessment/Plan: 63yo man s/p bilateral total knee replacements 1. Bilateral TKA: f/u with Dr. Ortiz. PT/OT. Oxycodone 15 mg PO Q4 PRN or Percocet 1-2 Q4 PRN, d/c OxyContin 2. Chronic low back pain: Soma at night. At home uses 4-6 percocet per day. 3. DVT prophylaxis: Eliquis 2.5mg bid 4. Nausea/vomiting: d/c scopalomine patch. zofran prn. 5. Nicotine dependence (chewing tobacco): has nicotine gum and lozenges prn but not using 6. Acute post-op anemia: Hemoglobin 11.3. 7. Peptic ulcer disease: continue protonix substitute for home omeprazole 8. Rheumatoid arthritis: prednisone done. Off NSAIDs while on Eliquis. 9. Advanced directives: full code. is hcp. 05/18/19 18:00 05/18/19 18:01 05/18/19 18:01
[2019-05-18] MEDS: Carisoprodol TAB* 350 MG PO SCH (20:47)
[2019-05-19] MEDS: oxyCODONE TAB* 5 MG TAB PO PRN ×3 (02:10→10:10)
[2019-05-19 05:22] VITALS: BP 121/65
[2019-05-19] MEDS: Apixaban* 2.5 MG TAB PO SCH (09:35)
[2019-05-19] MEDS: Vitamin THERAPEUTIC TAB PO SCH (09:36)
[2019-05-19] MEDS: Docusate CAP* 100 MG PO SCH (09:36)
--- NOTE | 2019-05-19 23:00 | DS ---
CC: Dr. Jerald Tinsley in [place] * DISCHARGE SUMMARY: DATE OF ADMISSION: 05/06/19 DATE OF DISCHARGE: 05/19/19 DISCHARGE DIAGNOSES: 1. Bilateral total knee replacements. 2. Rheumatoid arthritis. 3. Chronic low back pain. 4. History of hepatitis C. 5. Depression. 6. Peptic ulcer disease. HISTORY OF PRESENT ILLNESS AND HOSPITAL COURSE: For complete history of the events leading up to her rehab stay, please see the history and physical dictated by Dr. Elza Espinal on 05/06/19. While on the rehab unit, the patient remained fairly stable from the medical point of view. He did have some difficulty with pain control early on. He was put on OxyContin as well as his p.r.n. oxycodone was increased. He was put on Tylenol. This seemed to help him. The patient complained that he was having a rheumatoid flare on 05/09 and was put on a 9-day course of prednisone. Otherwise, he was medically stable. The patient was seen by both Physical and Occupational Therapy and made good gains with both disciplines. With physical therapy at the time of admission, the patient required mod assist for transfers. He was unable to ambulate. With occupational therapy at the time of admission, the patient required supervision for upper body dressing, max assist for lower body dressing , mod assist for bathing and dependent for toileting, mod assist of 2 for toilet transfers. By the time of discharge, the patient was independent with transfers, independent ambulating with a walker 300 feet, independent going up and down a flight of stairs. Independent with his activities of daily living including toileting and toilet transfers. The patient was discharged home, . DISCHARGE DIET: Regular. CONDITION ON DISCHARGE: Stable. DISCHARGE MEDICATIONS: Included: 1. Eliquis 2.5 mg twice a day. 2. Soma 350 mg 3 times a day as needed. 3. Oxycodone 15 mg every 4 hours as needed for the next 2 weeks. 4. Omeprazole 20 mg daily. 5. MiraLAX 17 g orally in a glass of water every day as needed. SERVICES AFTER DISCHARGE: [facility]. He will have home nursing and home physical therapy. Follow up with Dr. Chidi Ortiz, 05/24/19. He will also follow up with his primary care doctor, Dr. Jerald Tinsley as well as Dr. Talavera, his pain physician. TIME SPENT: Time for this discharge was approximately 50 minutes, greater than half of that was spent with the patient explaining post-rehabilitation therapies , appointments and medications. [id number]/[facility] #: [id number] MTDD
== END 2019-05-19 11:15 | disposition home health service (06) | DRG 560 ==
LOC: PMRU 12:55
PROVIDERS: ADMIT Physical Medicine & Rehabilitation; ATTEND Physical Medicine & Rehabilitation
PROC: F07Z5ZZ Bed Mobility Treatment (ICD-10-PCS; principal; 2019-05-06)
PROC: F07Z9ZZ Gait Training/Functional Ambulation Treatment (ICD-10-PCS; 2019-05-06)
PROC: F07Z8ZZ Transfer Training Treatment (ICD-10-PCS; 2019-05-06)
PROC: F08Z0ZZ Bathing/Showering Techniques Treatment (ICD-10-PCS; 2019-05-06)
PROC: F08Z1ZZ Dressing Techniques Treatment (ICD-10-PCS; 2019-05-06)
PROC: F08Z3ZZ Feeding/Eating Treatment (ICD-10-PCS; 2019-05-06)
DX: Z47.1 Aftercare following joint replacement surgery (principal); D62 Acute posthemorrhagic anemia; Z96.653 Presence of artificial knee joint, bilateral; M06.9 Rheumatoid arthritis, unspecified; M54.5 Low back pain; F32.9 Major depressive disorder, single episode, unspecified; K27.9 Peptic ulcer, site unspecified, unspecified as acute or chronic, without hemorrhage or perforation; F17.220 Nicotine dependence, chewing tobacco, uncomplicated; R74.0 Nonspecific elevation of levels of transaminase and lactic acid dehydrogenase [LDH]; R11.2 Nausea with vomiting, unspecified; Z86.19 Personal history of other infectious and parasitic diseases; Z79.1 Long term (current) use of non-steroidal anti-inflammatories (NSAID); Z79.891 Long term (current) use of opiate analgesic; Z79.899 Other long term (current) drug therapy; Z88.5 Allergy status to narcotic agent; Z82.61 Family history of arthritis; Z82.49 Family history of ischemic heart disease and other diseases of the circulatory system; Z83.3 Family history of diabetes mellitus
CPT/HCPCS: 36415; 80053; 85025; A9270-GY; J1650; J7512